=== PATIENT | female | born 2005 | race Two or more races ===

== ENCOUNTER 2024-07-13 06:50 | Observation (INO) ==
--- NOTE | 2024-07-13 07:38 | Emergency Department Note ---
Impression & Plan Intractable cyclical vomiting with nausea ED Provider Note CHIEF COMPLAINT: Nausea, vomiting, chest burning x 2 days HISTORY OF PRESENT ILLNESS: Patient is a 18-year-old female with past medical history significant for cyclic vomiting syndrome who returns to the emergency department for continued nausea, vomiting, dry heaves, chest and esophageal burning. This is her third ED visit in 24 hours for the same complaint. She reports that she was seen at the [facility] facility on Friday. She was seen here twice yesterday. She was discharged around 0200 this morning, and now returns at 0700. Practitioner documented the patient was feeling improved at the time of discharge, but patient reports that she was still having symptoms at discharge, but went home anyways. She continues to note burning in her chest and esophagus and nausea, vomiting and dry heaves. She has not tried any medications as an outpatient for her symptoms, electing to come back to the emergency department. She rates her pain a 10/10. She has a history of the same, was diagnosed with cyclic vomiting syndrome about 5 years ago. She has had an EGD and seen GI in the past. She does report a history of marijuana use, but claims that this is not contributing to her current symptoms. REVIEW OF SYSTEMS: Review of systems as per HPI. All other systems reviewed were negative. 10 systems reviewed. PMH: External medical records are reviewed and summarized as above/below. See Problem List. SOCIAL HISTORY: Patient is a [employer] student from [place]. Lives in an apartment. PHYSICAL EXAM: Vital Signs: Reviewed Nurse's notes. CONSTITUTIONAL: Patient is an uncomfortable, tearful 18-year-old female who is rolling around on the gurney, holding an emesis bag. She is moaning/crying out in pain. EYES: Pupils equal, round, reactive to light and accommodation. EOMs intact without nystagmus. Sclera are anicteric. ENT: Tympanic membranes intact, with normal landmarks. External canals are clear. Oral and nasopharynx are clear. Mucous membranes are moist, no lesions, tongue and gums appear normal. CARDIOVASCULAR: Tachycardic, but regular, no murmur appreciated. Peripheral pulses easily palpable. RESPIRATORY: Breath sounds equal and clear to auscultation. ABDOMEN: Bowel sounds are present. Abdomen is soft, scaphoid, diffusely tender, primarily in the upper abdomen, no guarding or rebound. INTEGUMENTARY: No lesions or rash, normal skin turgor. LYMPH: No lymphadenopathy. EMERGENCY DEPARTMENT COURSE: The patient was seen and assessed as above. External medical records were reviewed, including recent ED notes and labs. She returns to the ED for her third visit in about 24 hours of the same complaint. She has a history of cyclic vomiting syndrome, also is a known marijuana user. IV lock was initiated. Laboratory studies were collected. She was hydrated with normal saline solution. She was treated with fentanyl 50mcg IV, Benadryl 50mg, compazine 10mg IV, and Pepcid 20 mg IV. She was observed on the cardiac rn. Diagnostics, as interpreted by me: Laboratory studies: White count mildly elevated at 14,600, with left shift, likely related to the stress of vomiting and pain. Stable from the prior labs x 2. No significant electrolyte imbalance, sodium 135, potassium 3.7, chloride 103, carbon oxide 17, anion gap of 15. Renal functions are normal. No transaminitis. Lipase is normal. ECG: Sinus tachycardia, 114 bpm. QT/QTc 390/537, mildly prolonged from prior. No acute ischemic changes. Cardiac Monitoring: An order was placed for continuous cardiac monitoring. The monitor shows a NSR at a rate of 78 per my interpretation. Patient was reassessed frequently. Initially, pain and nausea continued, but ultimately, patient did report feeling improved. No further vomiting after being medicated. All laboratory and diagnostic imaging studies are reviewed with her. Given that this is her third visit in 24 hours for the same complaint, discussed observation/admission with the patient who agrees. Normal saline continued at 250 cc/h. Patient discussed with ED case manager and [facility] and [facility]. Differential diagnosis: GERD, gastritis, esophagitis, peptic ulcer disease, pancreatitis, biliary pathology, infectious versus inflammatory colitis/enteritis, foodborne illness, cyclic vomiting syndrome, electrolyte or metabolic abnormality, dehydration, among others. Past Med/Surg History Problem List Intractable cyclical vomiting with nausea (Acute) Cannabinoid hyperemesis syndrome (Acute) Gastritis (Acute) Nausea & vomiting (Acute) Medical History Cyclic vomiting syndrome Cannabinoid hyperemesis syndrome Surgical History History of esophagogastroduodenoscopy (EGD) Social History Smoking Status: Never smoker Second Hand Exposure: No; Do You Dip or Chew Tobacco: No; Tobacco Cessation Education Requested by Patient: No Hx Alcohol Use: Yes Alcohol type: hard liquor Hx Substance Use: Yes Last Used Substance: Days (ago) Preferred Language: Nepali Communication Ability: Effective Vault Maker Required: No Beliefs That Will Affect Care: None Current Living Situation: Other Current Living Situation Comment: college dorm off campus Other Information That Helps Us Care for You: No Feels Safe at Home: Yes Safety Concerns: Feels Safe At This Time Assistive Devices: None Allergies Allergies Allergy/AdvReac Type Severity Reaction Status Date / Time No Known Allergies Allergy Verified 07/13/24 07:35 Home Meds Home Medications Medication Instructions Recorded Confirmed Oral Contraceptive 1 tab PO DAILY 07/13/24 07/13/24 Zofran 1 tab PO DIRECTED PRN n/v 07/13/24 07/13/24 escitalopram oxalate 10 mg tablet 10 mg PO DAILY 07/13/24 07/13/24 (Lexapro) hydroxyzine HCl 25 mg tablet 25 mg PO DIRECTED PRN anxiety 07/13/24 07/13/24 Results & Data (ED) Vital Signs Vital Signs - 24 hr 07/13/24 07:04 07/13/24 08:00 07/13/24 08:00 Temperature 36.7 C 36.8 C Temperature Source Temporal Artery Scan Oral Pulse Rate 110 H 114 H Pulse Rate [Right Finger] 114 H Pulse Rhythm Regular Pulse Rhythm [Right Finger] Regular Pulse Strength [Right Finger] Normal Respiratory Rate 24 26 H 26 H Respiratory Effort / Characteristics Non-Labored Spontaneous Respiratory Depth Normal Respiratory Pattern Regular Blood Pressure [Left Arm] 109/74 Blood Pressure Mean [Left Arm] 85 Blood Pressure Position [Left Arm] Semi-fowlers Pulse Oximetry 98 98 98 Oxygen Delivery Method Room Air Room Air Room Air Sepsis New/Unexplained Change in Mental Status No Sepsis Action Taken by Nursing No Action Required 07/13/24 08:14 07/13/24 10:00 Temperature 36.8 C Temperature Source Oral Pulse Rate 78 Pulse Rate [Right Finger] 74 Pulse Rhythm Pulse Rhythm [Right Finger] Regular Pulse Strength [Right Finger] Normal Respiratory Rate 18 Respiratory Effort / Characteristics Non-Labored Spontaneous Respiratory Depth Normal Respiratory Pattern Regular Blood Pressure [Left Arm] 119/84 Blood Pressure Mean [Left Arm] 95 Blood Pressure Position [Left Arm] Semi-fowlers Pulse Oximetry 98 Oxygen Delivery Method Room Air Sepsis New/Unexplained Change in Mental Status Sepsis Action Taken by Longterm Medications Current Medication List: was personally reviewed by me Laboratory Data Attestation: I reviewed the patient's lab results. 07/13/24 07:49 07/13/24 07:49 Lab Results 07/13/24 Range/Units 07:49 WBC 14.64 H (4.8-10.8) K/ul RBC 4.51 (4.20-5.40) M/uL Hgb 12.9 (12.0-16.0) g/dl Hct 37.9 (37.0-47.0) % MCV 84.0 (80.0-100.0) fL MCH 28.6 (25.0-34.0) pg MCHC 34.0 (32.0-36.0) g/dL RDW Std Deviation 40.5 (36.4-46.3) fL RDW Coeff of Bienven[place] 13.2 (11.5-14.5) % Plt Count 232 (130-400) K/uL MPV 13.2 H (9.4-12.4) fL Immature Gran % (Auto) 0.3 % Neut % (Auto) 73.7 % Lymph % (Auto) 16.9 % [place] % (Auto) 8.9 % Eos % (Auto) 0.1 % Baso % (Auto) 0.1 % Neut # (Auto) 10.76 H (1.40-6.50) K/uL Lymph # (Auto) 2.48 (1.20-3.40) K/uL [place] # (Auto) 1.31 H (0.11-0.59) K/uL Eos # (Auto) 0.02 (0.00-0.50) K/uL Baso # (Auto) 0.02 (0.00-0.20) K/uL Immature Gran # (Auto) 0.05 (0.01-0.20) K/uL Sodium 135 L (136-145) mmol/L Potassium 3.7 (3.5-5.1) mmol/L Chloride 103 (98-107) mmol/L Carbon Dioxide 17 L (21-32) mmol/L Anion Gap 15 H (3-11) BUN 12 (6-23) mg/dl Creatinine 0.78 (0.6-1.2) mg/dl Est Cr Clr Drug Dosing 86.8 ml/min Est GFR ( Amer) 126.8 ml/min Est GFR (Non-Af Amer) 109.4 ml/min BUN/Creatinine Ratio 15.4 (10-20) Glucose 128 H (70-99(Fasting)) mg/dl Calcium 9.4 (8.6-10.3) mg/dl Total Bilirubin 0.7 (0.2-1.0) mg/dl AST 30 (13-39) U/L ALT 28 (7-52) U/L Alkaline Phosphatase 40 (34-104) U/L Troponin I High Sens 6.0 (0-14) pg/ml Total Protein 7.6 (6.0-8.3) gm/dl Albumin 4.4 (3.4-5.0) gm/dl Globulin 3.2 (2.5-4.0) gm/dl Albumin/Globulin Ratio 1.4 (0.9-2) Lipase 17 (11-82) U/L HCG, Qual Negative (Negative) Administered Medications Al Hydrox/Mg Hydrox/Simethicone (Aluminum/Magnesium Susp 30 Ml Udc) 30 ml PO Q6H PRN PRN Reason: GERD/Pain Stop: 08/12/24 18:28 Last Admin: 07/13/24 19:08 Dose: 30 ml Documented By: CHRISTOPHER Dextrose/Lactated Ringer's (D5w And Lactated Ringers) 1,000 mls @ 125 mls/hr IV .Q8H STEVE Stop: 08/12/24 10:44 Last Admin: 07/13/24 19:59 Dose: 125 mls/hr Documented By: Infusion: 07/13/24 19:59 Dose: Infused Documented By: Admin: 07/13/24 13:33 Dose: 125 mls/hr Documented By: JULIO C Famotidine (Pepcid 20mg Iv Push) 20 mg in 5 mls @ 2.5 mls/min IV Q12H STEVE Stop: 08/12/24 11:59 Last Admin: 07/13/24 11:57 Dose: 2.5 mls/min Documented By: JULIO C Acetaminophen (Ofirmev) 1,000 mg in 100 mls @ 400 mls/hr IV Q8H PRN PRN Reason: pain/fever Stop: 07/16/24 12:05 Last Admin: 07/13/24 21:30 Dose: 400 mls/hr Documented By: Infusion: 07/13/24 13:03 Dose: Infused Documented By: JULIO C Admin: 07/13/24 12:13 Dose: 400 mls/hr Documented By: JULIO C Meclizine HCl (Meclizine 12.5 Mg Tab) 12.5 mg PO BID PRN PRN Reason: Nausea And Vomiting Stop: 08/12/24 11:46 Last Admin: 07/13/24 19:08 Dose: 12.5 mg Documented By: CHRISTOPHER Ondansetron HCl (Ondansetron Inj 2 Mg/Ml 2 Ml Vial) 4 mg IV Q4H PRN PRN Reason: Nausea Stop: 08/12/24 13:12 Last Admin: 07/13/24 18:15 Dose: 4 mg Documented By: Admin: 07/13/24 13:34 Dose: 4 mg Documented By: JULIO C Discontinued Medications Al Hydrox/Mg Hydrox/Simethicone (Aluminum/Magnesium Susp 30 Ml Udc) 30 ml PO NOW STA Stop: 07/13/24 13:10 Last Admin: 07/13/24 13:34 Dose: 30 ml Documented By: JULIO C Diphenhydramine HCl (Diphenhydramine 50 Mg/Ml Vial) 50 mg IV NOW STA Stop: 07/13/24 07:37 Last Admin: 07/13/24 07:54 Dose: 50 mg Documented By: ROSIO Diphenhydramine HCl (Diphenhydramine 50 Mg/Ml Vial) 25 mg IV NOW STA Stop: 07/13/24 20:17 Last Admin: 07/13/24 20:39 Dose: 25 mg Documented By: ROZ Fentanyl Citrate (Fentanyl Citrate Pf 100 Mcg/2 Ml Vial) 50 mcg IV NOW STA Stop: 07/13/24 07:37 Last Admin: 07/13/24 07:54 Dose: 50 mcg Documented By: ROSIO Sodium Chloride (Nss) 1,000 mls @ 999 mls/hr IV .Q1H1M STEVE Stop: 07/13/24 08:36 Last Infusion: 07/13/24 09:37 Dose: Infused Documented By: Admin: 07/13/24 07:54 Dose: 999 mls/hr Documented By: ROSIO Famotidine (Pepcid 20mg Iv Push) 20 mg in 5 mls @ 2.5 mls/min IV NOW STA Stop: 07/13/24 07:37 Last Admin: 07/13/24 07:55 Dose: 2.5 mls/min Documented By: ROSIO Prochlorperazine (Compazine) 2 mls @ 1 mls/min IV ONE ONE Stop: 07/13/24 07:37 Last Admin: 07/13/24 07:54 Dose: 1 mls/min Documented By: ROSIO Sodium Chloride (Nss) 1,000 mls @ 250 mls/hr IV .Q4H [facility] Stop: 08/12/24 09:29 Last Infusion: 07/13/24 13:29 Dose: Infused Documented By: JULI OC Admin: 07/13/24 09:28 Dose: 250 mls/hr Documented By: ROSIO Magnesium Sulfate/Dextrose (Magnesium Sulfate / D5w) 1 gm in 100 mls @ 50 mls/hr IV ONE ONE Stop: 07/13/24 12:19 Last Infusion: 07/13/24 13:29 Dose: Infused Documented By: JULIO C Admin: 07/13/24 11:14 Dose: 50 mls/hr Documented By: ROSIO Pantoprazole Sodium 40 mg/ (Syringe) 10 mls @ 5 mls/min IV NOW ONE Stop: 07/13/24 18:46 Last Admin: 07/13/24 19:07 Dose: 5 mls/min Documented By: CHRISTOPHER Prochlorperazine 10 mg/ (Syringe) 10 mls @ 5 mls/min IV ONE ONE Stop: 07/13/24 20:31 Last Admin: 07/13/24 20:40 Dose: 5 mls/min Documented By: ROZ Ioversol (Optiray 320 125ml) 119 ml IV ONCE ONE Stop: 07/13/24 15:14 Last Admin: 07/13/24 15:13 Dose: 119 ml Documented By: HILARIO Discharge Plan Visit Data Chief Complaint: Vomiting Stated Complaint: WAS HERE EARLIER VOMITING ED Provider: Su Abel ED Midlevel Provider: Angeline Palmer Discharge Problem: Intractable cyclical vomiting with nausea Patient Disposition: Admitted As Inpatient Discharge Instructions Interventions: ED Discharge Assessment Last Done: 07/13/24 11:14
[2024-07-13] MEDS: diphenhydrAMINE 50 MG/ML VIAL IV STA ×2 (07:54→20:39)
[2024-07-13] MEDS: SODIUM CHLORIDE 0.9% 1,000 ML IV SCH ×2 (07:54→09:28)
[2024-07-13] MEDS: fentaNYL citrate PF 100 MCG/2 ML VIAL IV STA (07:54)
[2024-07-13] MEDS: PROCHLORPERAZINE 2 ML IV ONE (07:54)
[2024-07-13] MEDS: FAMOTIDINE 20MG IV PUSH 20 MG/5 ML SYR IV STA (07:55)
[2024-07-13 08:08] LABS: Basophils # (auto) 0.02 K/uL (0.00-0.20); Basophils % (auto) 0.1 %; Eosinophils # (auto) 0.02 K/uL (0.00-0.50); Eosinophils % (auto) 0.1 %; Hematocrit (blood only) 37.9 % (37.0-47.0); Hemoglobin 12.9 g/dl (12.0-16.0); Immature Granulocytes # (auto) 0.05 K/uL (0.01-0.20); Immature Granulocytes % (auto) 0.3 %; Lymphocytes # (auto) 2.48 K/uL (1.20-3.40); Lymphocytes % (auto) 16.9 %; Mean Corpuscular Hemoglobin 28.6 pg (25.0-34.0); Mean Platelet Volume 13.2 fL (9.4-12.4); Monocytes # (auto) 1.31 K/uL (0.11-0.59); Monocytes % (auto) 8.9 %; Neutrophils # (auto) 10.76 K/uL (1.40-6.50); Neutrophils % (auto) 73.7 %; Platelet Count 232 K/uL (130-400); RDW Coefficient of Variation 13.2 % (11.5-14.5); RDW Standard Deviation 40.5 fL (36.4-46.3); Red Blood Count 4.51 M/uL (4.20-5.40); White Blood Count 14.64 K/ul (4.8-10.8)
[2024-07-13 08:26] LABS: Albumin Globulin Ratio 1.4 (0.9-2); Albumin Level 4.4 gm/dl (3.4-5.0); BUN Creatinine Ratio 15.4 (10-20); Bilirubin,Total 0.7 mg/dl (0.2-1.0); Calcium 9.4 mg/dl (8.6-10.3); Creatinine Clr Calc Pharmacy 86.8 ml/min; Est GFR (African American) 126.8 ml/min; Est GFR (Non-African American) 109.4 ml/min; Globulin 3.2 gm/dl (2.5-4.0); Potassium 3.7 mmol/L (3.5-5.1); Total Protein 7.6 gm/dl (6.0-8.3)
--- NOTE | 2024-07-13 10:34 | History & Physical Report ---
Date of Service July 13, 2024 Assessment & Plan (1) Intractable cyclical vomiting with nausea: Plan: Nausea/vomiting, cyclic vomiting syndrome With history of cyclic vomiting syndrome, and marijuana use with potential for hyperemesis syndrome Patient has had cyclic vomiting syndrome x 5 years, has had intermittent marijuana use over the last year but denies use in the last 2 weeks, U tox is positive. Her cyclic vomiting preceded marijuana use, but certainly is at risk for ACS as well Received Pepcid, Benadryl, prochlorperazine in the ER. Feels slightly improved, additional antiemetics were limited by QT prolongation at 537. Mag optimized 2.0, tachycardia improved post fluids, QTc recheck pending Increased anion gap, low bicarb, borderline low potassium likely due to vomiting. Clinically volume contracted. IV FM continued with LR Leukocytosis of 14 without left shift, NLR of 5 likely from stress demargination. No abdominal pain at time of assessment. No indication for CT at time of admitting assessment. Lipase and transaminases are normal Given prolonged QT continue meclizine for antiemetic, second line low-dose Haldol IM second line if QT remains prolonged. Could use benzodiazepines however would defer this due to risks as a potentially habit-forming medication Patient reports she has never been tried on a triptan. Does not have any known history of hypersensitivity, hepatic disease, or seizures. Can consider this for abortive treatment in the future will defer this 2/2 QT greater than 500 on admission Can add CoQ10 as outpatient for ?benefit in [facility] suppression. Do not have this on inpt formulary (2) Cyclic vomiting syndrome: Plan DVT prophylaxis: Low risk. SCDs and ambulate Diet: Clears, advance as tolerated Disposition: Medical telemetry given prolonged QT s/p antiemetics CODE STATUS: Full code History of Present Illness Primary Care Provider: [facility] Delisa is a 18yo female with a past medical history of cyclic vomiting syndrome and marijuana use who presents with continued nausea/vomiting, dry heaves and point contraction. Third ER visit in 24 hours for the same complaint. Was seen at [facility] on Friday and twice in the ER yesterday. Was discharged several hours ago this morning and return to the ER for ongoing nausea/vomiting. Due to multiple presentations and ongoing symptoms she is recommended for observation for intractable nausea. 18-year-old female with a past medical history of cyclic vomiting syndrome of around 5 years, and marijuana use for around 1 year. She reports her attacks are typically set off by anxiety more several times a year however since being on Lexapro her anxiety is greatly improved and has had a dramatic reduction in her cyclic vomiting episodes now only a few a year. She thinks that her episode this time may have been triggered by eating rice and bad chicken a fe days ago and then started vomiting after. Anxiety had set off attack before but feels this is currently well-controlled. No tobacco use, no vape use. Marijuana use 1-2x on the weekends since sophomore year of college (~1 year ago) and has not noticed an effect on her nausea/vomiting. She reports she has not used any marijuana in the last 2 weeks, reports she has been counseled many times to avoid this for its potential to worsen nausea/vomiting syndromes or induce SHAHNAZ No diarhhea. Denies abdominal pain at time of assessment Endorses some pain in her throught/sternum after vomiting. None at time of bedside assessment No fever, chills, or sweats No dysuria No vaginal burning, pain, or discharge Reports she still feels nauseous and has trouble keeping food down No hematemesis. No melena. No bright red blood per rectum Medications include Lexapro 10mg OCP 'starts with an E' but is not sure which 1. Will attempt to clarify and have med rec updated. No recent medication changes Zofran PRN Hydroxyzine thinks 25mg used rarely for anxiety attack Medical History: Reviewed Medications: Reviewed Surgical History: Reviewed Family history: Reviewed Allergies: Reviewed. NKDA Social History: As noted. Code Status: Full Code. Does not want her parents called at time of admission, only if necessary in an emergency. Allergies Allergy/AdvReac Type Severity Reaction Status Date / Time No Known Allergies Allergy Verified 07/13/24 07:35 Home Medications Medication Instructions Recorded Confirmed Type Oral Contraceptive 1 tab PO DAILY 07/13/24 07/13/24 History Zofran 1 tab PO DIRECTED PRN n/v 07/13/24 07/13/24 History escitalopram oxalate 10 mg tablet 10 mg PO DAILY 07/13/24 07/13/24 History (Lexapro) hydroxyzine HCl 25 mg tablet 25 mg PO DIRECTED PRN anxiety 10/01/24 10/01/24 History Past Med/Surg History Problem List Intractable cyclical vomiting with nausea (Acute) Cannabinoid hyperemesis syndrome (Acute) Gastritis (Acute) Nausea & vomiting (Acute) Medical History Cyclic vomiting syndrome Cannabinoid hyperemesis syndrome Surgical History History of esophagogastroduodenoscopy (EGD) Social History Smoking Status: Current some day smoker Preferred Language: South Korean Feels Safe at Home: Yes Physical Exam Physical Exam: General: A&Ox3. NAD. Cooperative. HEENT: Atraumatic, normocephalic. Vision/hearing intact. Pupils equal and reactive to light. Mucous membranes tacky. Pulm: CTAB A&P. -wheezes, -rales, -rhonchi. Symmetrical chest rise. No increased work of breathing. No respiratory distress. Cardiac: RRR, -mrg. Radial pulses intact and symmetrical. Abdominal: Nontender, nondistended, soft. BS present. Extremities: Warm and dry. Moves all extremities equally Results & Data Results & Data Vital Signs (Past 12 Hours) Vital Signs Temp Pulse Pulse Resp BP Pulse Ox O2 Del Method 07/13/24 10:00 36.8 C 74 18 119/84 98 Room Air 07/13/24 08:14 78 07/13/24 08:00 114 H 26 H 98 Room Air 07/13/24 08:00 36.8 C 114 H 26 H 109/74 98 Room Air 07/13/24 07:04 36.7 C 110 H 24 98 Room Air PG Care Time/CCT Total # of Minutes Spent Total Time Spent with Patient: Total time spent is greater than 50% in coordination of care (as documented) at patient's floor/unit and/or counseling patient: Coding Level of Care Code 02133 INT INP/OBS CARE 3/75MIN Diagnoses Intractable cyclical vomiting with nausea R11.15 Cyclic vomiting syndrome R11.15
--- NOTE | 2024-07-13 11:05 | Electrocardiogram Report ---
Test Reason : Blood Pressure : */* mmHG Vent. Rate : 114 BPM Atrial Rate : 114 BPM P-R Int : 120 ms QRS Dur : 68 ms QT Int : 390 ms P-R-T Axes : 83 81 70 degrees QTcB Int : 537 ms Sinus tachycardia Possible Left atrial enlargement Prolonged QT Nonspecific ST abnormality Abnormal ECG When compared with ECG of 12-Jul-2024 21:44, (unconfirmed) T wave inversion no longer evident in Inferior leads T wave amplitude has decreased in Lateral leads Confirmed by Eric Luque ([id number]) on 07/13/2024 11:04:48 AM Referred By: REFERRED SELF Confirmed By: Eric Luque
[2024-07-13] MEDS: MAGNESIUM SULFATE / D5W 1 GM/100 ML BAG IV ONE (11:14)
[2024-07-13] MEDS ORDERED: ACETAMINOPHEN 325 MG TAB PO PRN (11:47)
[2024-07-13] MEDS: FAMOTIDINE 20MG IV PUSH 20 MG/5 ML SYR IV SCH (11:57)
[2024-07-13 12:04] LABS: Appearance Urine Clear (Clear); Bilirubin Urine Negative (Negative); Blood Urine Negative (Negative); Color Urine Yellow; Glucose Urine UA Negative (Negative); Ketones Urine 2+ (Negative); Leukocyte Esterase Urine Negative (Negative); Nitrite Urine Negative (Negative); Protein Urine Negative (Negative); Specific Gravity Urine 1.012 (1.000-1.030); Urobilinogen Urine Negative (Negative); pH Urine 6.5 (4.5-7.5)
[2024-07-13] MEDS: ACETAMINOPHEN 1,000 MG/100 ML VIAL IV PRN (12:13)
[2024-07-13] MEDS: D5W AND LACTATED RINGERS 1,000 ML IV SCH (13:33)
[2024-07-13] MEDS: ALUMINUM/MAGNESIUM SUSP 30 ML UDC PO STA (13:34)
[2024-07-13] MEDS: ONDANSETRON INJ 2 MG/ML 2 ML VIAL IV PRN (13:34)
[2024-07-13] MEDS: OPTIRAY 320 125ml IV ONE (15:13)
[2024-07-13 15:17] LABS: Pregnancy Test, Serum Negative (Negative)
--- NOTE | 2024-07-13 15:27 | CT Scan Report ---
CT abd pelvis IV con only CLINICAL HISTORY: abdominal pain TECHNIQUE: Helical axial images of the abdomen and pelvis were obtained and displayed. Automated dose lowering techniques and/or adjustment according to patient size were utilized for this exam. This e xam was performed with intravenous contrast. CT DOSE: 574.38 mGy.cm COMPARISON: None available at the time of this dictation. FINDINGS: Lower chest: No acute abnormality. Liver: Unremarkable. No focal lesions are seen. Gallbladder and biliary tree: No calcified gallstones. Normal caliber wall. No intra- or extrahepatic biliary ductal dilation. Pancreas: Unremarkable, no focal lesions. Spleen: Unremarkable. Adrenals: Unremarkable. Kidneys and ureters: Unremarkable. Bladder: Unremarkable. Reproductive organs: Uterus is retroverted. Bowel: The appendix is normal. Lymph nodes Retroperitoneal: Unremarkable. Pelvic: Unremarkable. Mesenteric: Unremarkable. Peritoneum: Normal. Vessels: Unremarkable. Abdominal wall: Unremarkable. Bones: Unremarkable. IMPRESSION: No acute abnormalities and in particular no evidence of bowel obstruction this patient with nausea. ACT 112: Negative or not required by law. Electronically signed by: Kenny Urena M.D. 07/13/2024 3:25 PM
--- NOTE | 2024-07-13 15:28 | CT Scan Report ---
CT ANGIOGRAPHY OF THE CHEST, PULMONARY EMBOLUS PROTOCOL CLINICAL HISTORY: Chest pain. Evaluate for pulmonary embolus. COMPARISON STUDY: Chest radiograph July 12, 2024. TECHNIQUE: Following IV administration of 119 mL of Optiray, helical axial images of the chest were o btained utilizing the pulmonary embolus protocol. Maximal intensity projections and sagittal and cor onal reformats were viewed on an independent 3D workstation. IV contrast was administered without co mplication. Automated exposure control was utilized for the study. A dose lowering technique was ut ilized adhering to the principles of ALARA. FINDINGS: No pulmonary emboli are identified. There is no thoracic aortic dissection. Size of the he art is normal. There is no pericardial effusion. No enlarged axillary, mediastinal or hilar lymph nod es are present. There are no pulmonary nodules. There is no pneumothorax or pleural effusion. No cons olidation to suggest pneumonia. Please note that the abdomen and pelvis CT will be reported separatel y. IMPRESSION: 1. No pulmonary emboli identified. 2. No acute intrathoracic findings. ACT 112: Negative or not required by law. Electronically signed by: Alex Huerta M.D. 07/13/2024 3:27 PM
[2024-07-13] MEDS: PANTOprazole 40 MG in SYRINGE 0 ML IV ONE (19:07)
[2024-07-13] MEDS: ALUMINUM/MAGNESIUM SUSP 30 ML UDC PO PRN (19:08)
[2024-07-13] MEDS: MECLIZINE 12.5 MG TAB PO PRN (19:08)
[2024-07-13] MEDS: PROCHLORPERAZINE 10 MG in SYRINGE 8 ML IV ONE (20:40)
[2024-07-14 07:15] LABS: Basophils # (auto) 0.06 K/uL (0.00-0.20); Basophils % (auto) 0.7 %; Eosinophils # (auto) 0.01 K/uL (0.00-0.50); Eosinophils % (auto) 0.1 %; Hematocrit (blood only) 34.7 % (37.0-47.0); Hemoglobin 11.6 g/dl (12.0-16.0); Immature Granulocytes # (auto) 0.02 K/uL (0.01-0.20); Immature Granulocytes % (auto) 0.2 %; Lymphocytes # (auto) 3.75 K/uL (1.20-3.40); Lymphocytes % (auto) 42.3 %; Mean Corpuscular Hemoglobin 28.6 pg (25.0-34.0); Mean Corpuscular Hgb Conc 33.4 g/dL (32.0-36.0); Mean Corpuscular Volume 85.5 fL (80.0-100.0); Mean Platelet Volume 13.2 fL (9.4-12.4); Monocytes # (auto) 0.79 K/uL (0.11-0.59); Monocytes % (auto) 8.9 %; Neutrophils # (auto) 4.24 K/uL (1.40-6.50); Neutrophils % (auto) 47.8 %; Platelet Count 190 K/uL (130-400); RDW Coefficient of Variation 13.5 % (11.5-14.5); RDW Standard Deviation 41.4 fL (36.4-46.3); Red Blood Count 4.06 M/uL (4.20-5.40); White Blood Count 8.87 K/ul (4.8-10.8)
[2024-07-14 07:37] LABS: Calcium 8.5 mg/dl (8.6-10.3); Potassium 3.5 mmol/L (3.5-5.1)
[2024-07-14 07:38] VITALS: TEMP 98.4
[2024-07-14 07:42] LABS: BUN Creatinine Ratio 6.7 (10-20); Creatinine Clr Calc Pharmacy 90.3 ml/min; Est GFR (Non-African American) 114.7 ml/min
--- NOTE | 2024-07-14 07:49 | Hospitalist Progress Note ---
Date of Service July 14, 2024 Assessment & Plan (1) Intractable cyclical vomiting with nausea: Plan: Nausea/vomiting, cyclic vomiting syndrome With history of cyclic vomiting syndrome, and marijuana use with potential for hyperemesis syndrome Patient has had cyclic vomiting syndrome x 5 years, has had intermittent marijuana use over the last year but denies use in the last 2 weeks, U tox is positive. Her cyclic vomiting preceded marijuana use, but certainly is at risk for ACS as well Received Pepcid, Benadryl, prochlorperazine in the ER. Feels slightly improved, additional antiemetics were limited by QT prolongation at 537. Mag optimized 2.0, tachycardia improved post fluids, QTc recheck pending Increased anion gap, low bicarb, borderline low potassium likely due to vomiting. Clinically volume contracted. IV FM continued with LR Leukocytosis of 14 without left shift, NLR of 5 likely from stress demargination. No abdominal pain at time of assessment. No indication for CT at time of admitting assessment. Lipase and transaminases are normal Given prolonged QT continue meclizine for antiemetic, second line low-dose Haldol IM second line if QT remains prolonged. Could use benzodiazepines however would defer this due to risks as a potentially habit-forming medication Patient reports she has never been tried on a triptan. Does not have any known history of hypersensitivity, hepatic disease, or seizures. Can consider this for abortive treatment in the future will defer this 2/2 QT greater than 500 on admission Can add CoQ10 as outpatient for ?benefit in [facility] suppression. Do not have this on inpt formulary CTA chest negative for PE, abdomen/pelvis negative for acute process given reports of 10/10 abdominal pain last evening 07/14 - s/p Protonix, mag IV on admission. Continues Protonix IVP, Pepcid IV - Was given Benadryl 25mg IV and prochlorperazine 10mg IV overnight - Repeat EKG this morning to monitor QTC UA w/ 2+ ketones, anion gap normalized on repeat chemistries. Prior UA from AM 10 noting 3-5 RBC, 11-20 WBC, 6-10 epi, 1+ bacteria -- monitor urine cx WBC normalized on repeat, ?stress from n/v IVF w/ LR @ 125cc/hr. BUN/Cr stable and will decrease to 75cc/hr for now until able to assess ability to take PO. Clear liquid--> Full liquid diet this morning--> advance as tolerated. Can dc IVF if keeping up with PO Check biofire given n/v and reports possible rice/chicken contaminant. ? food poisoning. ?anyone else get sick ?relation to period/PMS (2) Cyclic vomiting syndrome: Plan DVT prophylaxis: Low risk. SCDs and ambulate Diet: Clears, advance as tolerated Disposition: Medical telemetry given prolonged QT s/p antiemetics CODE STATUS: Full code Admission and Anticipated Discharge Date Admission Date: July 13, 2024 Subjective Sleeping soundly this morning, given IV benadryl and compazine overnight for ongoing nausea/vomiting. Wanting chicken soup this morning, can advance diet. Per nursing wanting to go home, labs improved and can monitor diet w/ advancement and if no issues can plan for discharge. Results & Data Results & Data Vital Signs (Past 12 Hours) Vital Signs Temp Pulse Pulse Resp BP Pulse Ox O2 Del Method 07/14/24 07:37 36.9 C 85 16 116/73 99 Room Air 07/14/24 07:19 75 07/14/24 03:57 36.8 C 78 20 102/66 98 Room Air 07/14/24 00:03 36.6 C 68 20 100/65 99 Room Air 07/13/24 20:04 36.3 C L 65 20 144/88 H 100 Room Air Laboratory Results 07/14/24 06:06 07/14/24 06:06 Mag 2.1 A1c Diagnostic Findings Abdomen/Pelvis CT 07/13/24 14:28 CT abd pelvis IV con only CLINICAL HISTORY: abdominal pain TECHNIQUE: Helical axial images of the abdomen and pelvis were obtained and displayed. Automated dose lowering techniques and/or adjustment according to patient size were utilized for this exam. This exam was performed with intravenous contrast. CT DOSE: 574.38 mGy.cm COMPARISON: None available at the time of this dictation. FINDINGS: Lower chest: No acute abnormality. Liver: Unremarkable. No focal lesions are seen. Gallbladder and biliary tree: No calcified gallstones. Normal caliber wall. No intra- or extrahepatic biliary ductal dilation. Pancreas: Unremarkable, no focal lesions. Spleen: Unremarkable. Adrenals: Unremarkable. Kidneys and ureters: Unremarkable. Bladder: Unremarkable. Reproductive organs: Uterus is retroverted. Bowel: The appendix is normal. Lymph nodes Retroperitoneal: Unremarkable. Pelvic: Unremarkable. Mesenteric: Unremarkable. Peritoneum: Normal. Vessels: Unremarkable. Abdominal wall: Unremarkable. Bones: Unremarkable. IMPRESSION: No acute abnormalities and in particular no evidence of bowel obstruction this patient with nausea. ACT 112: Negative or not required by law. Electronically signed by: Kenny Urena M.D. 07/13/2024 3:25 PM Chest CTA 07/13/24 14:28 CT ANGIOGRAPHY OF THE CHEST, PULMONARY EMBOLUS PROTOCOL CLINICAL HISTORY: Chest pain. Evaluate for pulmonary embolus. COMPARISON STUDY: Chest radiograph July 12, 2024. TECHNIQUE: Following IV administration of 119 mL of Optiray, helical axial images of the chest were obtained utilizing the pulmonary embolus protocol. Maximal intensity projections and sagittal and coronal reformats were viewed on an independent 3D workstation. IV contrast was administered without complication. Automated exposure control was utilized for the study. A dose lowering technique was utilized adhering to the principles of ALARA. FINDINGS: No pulmonary emboli are identified. There is no thoracic aortic dissection. Size of the heart is normal. There is no pericardial effusion. No enlarged axillary, mediastinal or hilar lymph nodes are present. There are no pulmonary nodules. There is no pneumothorax or pleural effusion. No consolidation to suggest pneumonia. Please note that the abdomen and pelvis CT will be reported separately. IMPRESSION: 1. No pulmonary emboli identified. 2. No acute intrathoracic findings. ACT 112: Negative or not required by law. Electronically signed by: Alex Huerta M.D. 07/13/2024 3:27 PM PG Care Time/CCT Total # of Minutes Spent Total Time Spent with Patient: Total time spent is greater than 50% in coordination of care (as documented) at patient's floor/unit and/or counseling patient: Coding Diagnoses Intractable cyclical vomiting with nausea R11.15 Cyclic vomiting syndrome R11.15
[2024-07-14 09:05] LABS: Estimated Average Glucose 111 mg/dl; Hemoglobin A1C 5.5 % (4.5-5.6)
[2024-07-14 11:14] VITALS: BP 127/85; PULSE 60; RESP 14; O2SAT 100
[2024-07-14 11:14] LABS: Adenovirus PCR Not Detected (NotDetected); Bordetella parapertussis PCR Not Detected (NotDetected); Bordetella pertussis PCR Not Detected (NotDetected); Chlamydia pneumoniae PCR Not Detected (NotDetected); Coronavirus 229E PCR Not Detected (NotDetected); Coronavirus CoV-2 (COVID19)PCR Not Detected (NotDetected); Coronavirus HKU1 PCR Not Detected (NotDetected); Coronavirus NL63 PCR Not Detected (NotDetected); Coronavirus OC43PCR Not Detected (NotDetected); Human Metapneumovirus PCR Not Detected (NotDetected); Influenza A PCR Not Detected (NotDetected); Influenza B PCR Not Detected (NotDetected); Mycoplasma pneumoniae PCR Not Detected (NotDetected); Parainfluenza Virus 1 PCR Not Detected (NotDetected); Parainfluenza Virus 2 PCR Not Detected (NotDetected); Parainfluenza Virus 3 PCR Not Detected (NotDetected); Parainfluenza Virus 4 PCR Not Detected (NotDetected); Respiratory Syncytial VirusPCR Not Detected (NotDetected); Rhinovirus/Enterovirus PCR Not Detected (NotDetected)
--- NOTE | 2024-07-14 12:01 | Discharge Summary ---
Discharge Summary Date of Service July 14, 2024 Principal Dx & Hospital Course #1 = Principal Diagnosis (1) Intractable cyclical vomiting with nausea: Patient reported with PMHx significant for cyclic vomiting syndrome x 5 yrs/marijuana use with potential for hyperemesis syndrome and intermittent marijuana use over the last year but denies use in the last 2 weeks. UDS positive for marijuana on admission. LFT/lipase wnl but did have low K/elevated anion gap/low bicarb consistent with dehydration/volume contraction/starvation ketosis from such? On admission evening did have significant discomfort concerning for admission team for possible PE/pneumo given signifciant pain however CTA chest NEGATIVE for PE and abd/pelvis negative for acute finding Was given pepcid, benadryl, proclorperazine in ER with slight improvement and given meclizine given QTC borderline 537 (normalized on repeat EKG 07/14 and telemetry stable/trop negative) and IVF hydration provided with D5LR and IV magnesium to keep electrolytes repleat with normalization in HR Continued on IVF with D5LR, pepcid/protonix on admission. Notable was given benadryl 25mg IV/prochlorperazine overnight and able to sleep through this morning but with concerns for prolonged QTC on admission did repeat EKG to ensure normalized and was normalized and telemetry was stable without reports for CP/SOB and trop negative x 2. Biofire checked given n/v and going around/student and was NEGATIVE Repeat labs with resolution in anion gap/low bicarb and leukocytosis resolved and suspect leukocytosis reactive from n/v prior to admission and remained afebrile while inpatient. Further discussion with patient reporting had rice/chicken from [place] restaurant. Possible food poisoning considered but no one else sick HOWEVER Delisa reports she does have issues with certain hutton's in the past/spices and discussed possible reflux related and sent on rx for pepcid to take before eating any again but would avoid for next couple of days as well as lactose (she usually dose avoid this when having GI upset as well) Tolerating diet, no further n/v with advancement and has rx for zofran at home. Encouraged cautious use/frequency and if using more than 1-2x/day or ongoing use should discuss with primary care outpatient. Did have bacteria from UA from ER 07/13 visit and cx pending but repeat UA negative for bacteria on admission. (2) Cyclic vomiting syndrome: as above, smoking cessation encouraged pepcid for reflux/spicy foods as likely trigger given reported issues with the SAME int he past and no use in past 2 weeks (despite +UDS, ?heavy user prior vs more recent use) Again, avoid marijuana use, spicy foods/triggers. diet as tolerated Notes For Next Care Provider Consider ongoing H2 therapy vs PPI for suspected reflux given reports following [place] food/chicken/rice and issues with hutton in the past. LFTs/lipase wnl and CTAP negative for GB/acute process Cautious use of zofran given QTC but was normalized on repeat. Consideration for referral to GI if ongoing issues despite diet change/pepcid but again could consider PPI but starting with H2 alexis (but was given both while inpatient) Medication Changes From Visit Pepcid 20mg PO daily Admission HPI Per Admitting Provider Delisa is a 18yo female with a past medical history of cyclic vomiting syndrome and marijuana use who presents with continued nausea/vomiting, dry heaves and point contraction. Third ER visit in 24 hours for the same complaint. Was seen at [facility] on Friday and twice in the ER yesterday. Was discharged several hours ago this morning and return to the ER for ongoing nausea/vomiting. Due to multiple presentations and ongoing symptoms she is recommended for observation for intractable nausea. 18-year-old female with a past medical history of cyclic vomiting syndrome of around 5 years, and marijuana use for around 1 year. She reports her attacks are typically set off by anxiety more several times a year however since being on Lexapro her anxiety is greatly improved and has had a dramatic reduction in her cyclic vomiting episodes now only a few a year. She thinks that her episode this time may have been triggered by eating rice and bad chicken a fe days ago and then started vomiting after. Anxiety had set off attack before but feels this is currently well-controlled. No tobacco use, no vape use. Marijuana use 1-2x on the weekends since sophomore year of college (~1 year ago) and has not noticed an effect on her nausea/vomiting. She reports she has not used any marijuana in the last 2 weeks, reports she has been counseled many times to avoid this for its potential to worsen nausea/vomiting syndromes or induce SHAHNAZ No diarhhea. Denies abdominal pain at time of assessment Endorses some pain in her throught/sternum after vomiting. None at time of bedside assessment No fever, chills, or sweats No dysuria No vaginal burning, pain, or discharge Reports she still feels nauseous and has trouble keeping food down No hematemesis. No melena. No bright red blood per rectum Medications include Lexapro 10mg OCP 'starts with an E' but is not sure which 1. Will attempt to clarify and have med rec updated. No recent medication changes Zofran PRN Hydroxyzine thinks 25mg used rarely for anxiety attack Medical History: Reviewed Medications: Reviewed Surgical History: Reviewed Family history: Reviewed Allergies: Reviewed. NKDA Social History: As noted. Code Status: Full Code. Does not want her parents called at time of admission, only if necessary in an emergency. Admission Exam Per Admitting Provider General: A&Ox3. NAD. Cooperative. HEENT: Atraumatic, normocephalic. Vision/hearing intact. Pupils equal and reactive to light. Mucous membranes tacky. Pulm: CTAB A&P. -wheezes, -rales, -rhonchi. Symmetrical chest rise. No increased work of breathing. No respiratory distress. Cardiac: RRR, -mrg. Radial pulses intact and symmetrical. Abdominal: Nontender, nondistended, soft. BS present. Extremities: Warm and dry. Moves all extremities equally Discharge Exam General: 18 yo female sitting up in bed, reporting wanting to advance diet/ready for home, no further nausea/vomiting reported Head atraumatic, normocephalic, mmm, trachea midline Resp even/unlabored, 100% on RA, no tachypnea CV: NSR on telemetry, rates 60-80s, no significant m/r/g, no pitting edema GI: +BS, soft/nontender, no rebound/guarding no hernández MSK/Neuro: non focal, answering questions appropriately, no slurred speech/fac ial droop Psych: AOx3, cooperative Discharge Plan Discharge Items Patient Disposition: Home - Self-Care Reason For Visit: INTRACTABLE VOMITING, QT PROLONGATION Discharge Diagnosis: Intractable nausea/vomiting, possible reflux/food poisoning Goals: You have been hospitalized for an acute medical problem. During your stay at [facility], we have made an effort to correct the problem that brought you to the hospital while keeping you as comfortable as possible. Medications were used to bring your condition under control and your discharge instructions will include directions for any medications you should take after leaving the hospital. Please make sure you see your Primary Care Provider as part of your follow up plan. Activity: As commented below Non-emergency contact: Primary Care Provider Call non-emergency contact if: you have any medication questions, your symptoms worsen, your pain is concerning for you and you have a fever Follow-up/Referrals: [facility] [Primary Care Provider] - Diet: Regular and Lactose Intolerant Addtl Attending Provider Instructions: You have been hospitalized for intractable nausea and vomiting that was brought about after eating chicken/rice/hutton. Possible for food poisoning but would suspect others also to get ill, HOWEVER you could have some underlying reflux which was worsened by spicy foods and we are sending you home on prescription for pepcid which should be taken before eating anything like that again but would avoid spicy/fried foods for another couple of days to ensure continued improvement. Biofire testing was negative for covid/other viral process. Imaging of the chest negative for blood clot and abdomen pelvis negative for anything sinister. Prior urine culture from ER visit 07/13 still pending but white count normal and no fever and if develops urinary symptoms should follow up for repeat testing however UA on admission did NOT have any bacteria and this is considered less likely. Please follow up with primary care in the next 7-10 days after discharge to monitor your status. please continue to stay hydrated at discharge and prevent dehydration. Encourage AVOIDING marijuana as this can cause cyclic vomiting as well. Please return to the ER with any worsening abdominal pain, inability to keep up with oral hydration or for any other symptoms concerning for you. Take care! Pending Studies at Discharge: No Stand-Alone Forms: My [facility] Blink (air taxi), Smoking Cessation Medications and DC Order Prescriptions: New famotidine [Pepcid] 20 mg tablet 20 mg PO DAILY Qty: 30 0RF Continued hydroxyzine HCl 25 mg Tablet 25 mg PO DIRECTED PRN (Reason: anxiety ) escitalopram oxalate [Lexapro] 10 mg Tablet 10 mg PO DAILY Oral Contraceptive 1 tab PO DAILY Rx Instructions: Unknown dose. Fill history unavailable. "starts with E" Zofran 1 tab PO DIRECTED PRN (Reason: n/v) Rx Instructions: unknown strength. Fill history unavailable Discharge Orders: Discharge Order (Routine); Ordered 07/14/24 Ordered By: Addis Cox/Other Patient Handouts: ED Diet Vomiting Diarrhea Admission Data Admit Date/Time: 07/13/24 10:47 Attending Provider: Bryson Morales Admit Provider: Oleksandr Azar Primary Care Provider: [facility] Other Providers: Oleksandr Azar Other Interventions: Discharge Summary Assessment (RN) Last Done: 07/14/24 12:51 Hospital Stay Data Consultations 07/13/24 10:29 ED Decision to Admit Stat Diagnostic Imagining Performed Abdomen/Pelvis CT 07/13/24 14:28 CT abd pelvis IV con only CLINICAL HISTORY: abdominal pain TECHNIQUE: Helical axial images of the abdomen and pelvis were obtained and displayed. Automated dose lowering techniques and/or adjustment according to patient size were utilized for this exam. This exam was performed with intravenous contrast. CT DOSE: 574.38 mGy.cm COMPARISON: None available at the time of this dictation. FINDINGS: Lower chest: No acute abnormality. Liver: Unremarkable. No focal lesions are seen. Gallbladder and biliary tree: No calcified gallstones. Normal caliber wall. No intra- or extrahepatic biliary ductal dilation. Pancreas: Unremarkable, no focal lesions. Spleen: Unremarkable. Adrenals: Unremarkable. Kidneys and ureters: Unremarkable. Bladder: Unremarkable. Reproductive organs: Uterus is retroverted. Bowel: The appendix is normal. Lymph nodes Retroperitoneal: Unremarkable. Pelvic: Unremarkable. Mesenteric: Unremarkable. Peritoneum: Normal. Vessels: Unremarkable. Abdominal wall: Unremarkable. Bones: Unremarkable. IMPRESSION: No acute abnormalities and in particular no evidence of bowel obstruction this patient with nausea. ACT 112: Negative or not required by law. Electronically signed by: Kenny Urena M.D. 07/13/2024 3:25 PM Chest CTA 07/13/24 14:28 CT ANGIOGRAPHY OF THE CHEST, PULMONARY EMBOLUS PROTOCOL CLINICAL HISTORY: Chest pain. Evaluate for pulmonary embolus. COMPARISON STUDY: Chest radiograph July 12, 2024. TECHNIQUE: Following IV administration of 119 mL of Optiray, helical axial images of the chest were obtained utilizing the pulmonary embolus protocol. Maximal intensity projections and sagittal and coronal reformats were viewed on an independent 3D workstation. IV contrast was administered without complication. Automated exposure control was utilized for the study. A dose lowering technique was utilized adhering to the principles of ALARA. FINDINGS: No pulmonary emboli are identified. There is no thoracic aortic dissection. Size of the heart is normal. There is no pericardial effusion. No enlarged axillary, mediastinal or hilar lymph nodes are present. There are no pu lmonary nodules. There is no pneumothorax or pleural effusion. No consolidation to suggest pneumonia. Please note that the abdomen and pelvis CT will be reported separately. IMPRESSION: 1. No pulmonary emboli identified. 2. No acute intrathoracic findings. ACT 112: Negative or not required by law. Electronically signed by: Alex Huerta M.D. 07/13/2024 3:27 PM Discharge Instructions Given to Patient (Per Discharging Provider) You have been hospitalized for intractable nausea and vomiting that was brought about after eating chicken/rice/hutton. Possible for food poisoning but would suspect others also to get ill, HOWEVER you could have some underlying reflux which was worsened by spicy foods and we are sending you home on prescription for pepcid which should be taken before eating anything like that again but would avoid spicy/fried foods for another couple of days to ensure continued improvement. Biofire testing was negative for covid/other viral process. Imaging of the chest negative for blood clot and abdomen pelvis negative for anything sinister. Prior urine culture from ER visit 07/13 still pending but white count normal and no fever and if develops urinary symptoms should follow up for repeat testing however UA on admission did NOT have any bacteria and this is considered less likely. Please follow up with primary care in the next 7-10 days after discharge to monitor your status. please continue to stay hydrated at discharge and prevent dehydration. Encourage AVOIDING marijuana as this can cause cyclic vomiting as well. Please return to the ER with any worsening abdominal pain, inability to keep up with oral hydration or for any other symptoms concerning for you. Take care! Supervising Physician Co-Signing Physician Notes The patient was not seen by me. The chart was reviewed. Case discussed with MARZENA Goodson. Agree with assessment and plan Total Time Total Time Spent Total Time Spent (In Minutes): 40 Coding Level of Care Code 59001 INP/OBS DISCH >30 MIN Diagnoses Intractable cyclical vomiting with nausea R11.15 Cyclic vomiting syndrome R11.15
[2024-07-14] MEDS: PANTOprazole 40 MG in SYRINGE 0 ML IV SCH (12:37)
--- NOTE | 2024-07-14 15:22 | Electrocardiogram Report ---
Test Reason : Blood Pressure : */* mmHG Vent. Rate : 66 BPM Atrial Rate : 66 BPM P-R Int : 126 ms QRS Dur : 104 ms QT Int : 416 ms P-R-T Axes : 67 76 63 degrees QTcB Int : 436 ms Sinus rhythm with occasional Premature ventricular complexes Otherwise normal ECG When compared with ECG of 13-Jul-2024 12:45, (unconfirmed) No significant change was found Confirmed by Eric Luque ([id number]) on 07/14/2024 3:22:02 PM Referred By: REFERRED SELF Confirmed By: Eric Luque
== END 2024-07-14 13:15 | disposition home or self-care (01) ==
LOC: ED 06:50 → EDINP 06:50 → SUATTDRO 10:47 → 2N 11:14

== ENCOUNTER 2024-08-28 03:17 | Observation (INO) ==
--- NOTE | 2024-08-28 03:48 | Emergency Department Note ---
Impression & Plan Intractable cyclical vomiting syndrome, Gastritis ED Provider Note Name: PAMELA LOWRY Age: 18 Sex: Female Arrives Via: Walk-In Informant: There ED Provider: Xander Main MD Chief Complaint: Vomiting Impression: As per impressions above Medical Decision Makin-year-old female with extensive history of cyclic vomiting and multiple previous hospitalizations over the last 5 years. Arrives for second time within the last 12 hours for intractable nausea vomiting and chest pain. EKG is reassuring. Laboratory workup is unremarkable. She was given Benadryl, Reglan, Ativan and fluids with vast improvement though still not tolerating p.o. Discussed with hospitalist who will further evaluate and manage. Triage/Nursing Notes reviewed by Me Differential:Gastroenteritis, food borne illness, infections, appendicitis, diverticulitis, inflammatory bowel disease, obstruction, GI bleed, biliary pathology, volvulus, as well as other pathologies. Vital Signs: reviewed and remarkable for tachycardia Interventions: Benadryl, Reglan, Ativan and fluids & Protonix Labs:ED labs Reviewed by me and remarkable for no significant abnormalities EKG:As per my interpretation. Indication chest pain. Normal sinus rhythm at 73 bpm QTc of 462. There is no ectopy nor ischemia. No significant change from an EKG done 24 hours earlier. Cardiac/Tele Monitoring: Cardiac Monitoring: An Order was placed for continuous cardiac monitoring. The monitor shows a rate of 70 with a normal sinus rhythm. Consults:Discussed with Dr Quoc Sheets for further management/evaluation Plan: Disposition:Hospitalization. Condition: Good History of Present Illness: 18-year-old female arrives for evaluation of vomiting. Patient with history of cyclic vomiting syndrome for the last 5 years. She notes previous physicians have noted marijuana as the cause however symptoms started to worsen over. Patient states that she was here all day yesterday for continued vomiting issues. After going home vomiting restarted and she returns back to the ER. Patient states she is having severe diffuse abdominal cramping, vomiting and now developing substernal chest pain. This is identical to how her symptoms usually are. She states she usually requires IV Ativan, IV antinausea medicine, IV Protonix and hospitalization to get her symptoms under control. She is from the [place] area and states she has been admitted many times previously. No medication prior to arrival. She was given Ativan and droperidol earlier in the day for her nausea and vomiting. Past Medical History:cannibis hyperemesis syndrome Home Medications:See Below Allergies:nkda Vitals:Blood Pressure: 142/108, Pulse 107, RR 18, T 36.2C, O2 96% on RA Physical Exam: GENERAL: Patient is uncomfortable/dehydrated appearing and in moderate distress. Actively dry heaving. Writhing around on the bed. RESPIRATORY: No dyspnea. Clear to auscultation and equal bilaterally. CARDIOVASCULAR: Tacky.No murmur appreciated. GASTROINTESTINAL: diffuse vague abdominal tenderness palpation EXTREMITIES: Normal motion all extremities, no cyanosis, no edema. NEUROLOGIC: Alert and oriented. No focal neurologic deficits appreciated SKIN: No rash, no jaundice, no diaphoresis. PSYCH: Appropriate GCS: 15 ED Course: Times/Reassessments: Patient feeling better unable to tolerate p.o. Xander Main MD Past Med/Surg History Problem List (Updated 08/29/24 @ 00:01 by Xander Main MD) Intractable cyclical vomiting syndrome (Acute) Anxiety with depression Chest pain UTI (urinary tract infection) Gastritis (Acute) Cannabinoid hyperemesis syndrome (Acute) Medical History Cyclic vomiting syndrome Cannabinoid hyperemesis syndrome Surgical History History of esophagogastroduodenoscopy (EGD) Social History Smoking Status: Never smoker Second Hand Exposure: No; Do You Dip or Chew Tobacco: No; Hx Alcohol Use: Yes Alcohol type: beer Hx Substance Use: No Preferred Language: Indonesian Communication Ability: Effective Director Corporate Security Required: No Beliefs That Will Affect Care: None Current Living Situation: Other Current Living Situation Comment: Apartment w/students Feels Safe at Home: Yes Assistive Devices: None Allergies Allergies Allergy/AdvReac Type Severity Reaction Status Date / Time No Known Allergies Allergy Verified 08/28/24 17:25 Home Meds Home Medications Medication Instructions Recorded Confirmed hydroxyzine HCl 25 mg tablet 25 mg PO UD PRN anxiety 07/13/24 08/28/24 norethindrone-eth. estradiol-iron 1 tab PO DAILY 08/28/24 08/28/24 1-20 (5)/1-30(7)/1mg-35mcg(9) tablet (Tilia Fe) Previous Rx's Medication Instructions Recorded famotidine 20 mg tablet (Pepcid) 20 mg PO DAILY #30 tabs 07/14/24 cephalexin 500 mg capsule 500 mg PO BID #8 caps 08/28/24 escitalopram oxalate 20 mg tablet 20 mg PO QAM #30 tabs 08/28/24 famotidine 20 mg tablet 20 mg PO BID #60 tabs 08/28/24 Results & Data (ED) Vital Signs Vital Signs - 24 hr 08/28/24 03:21 08/28/24 04:11 08/28/24 04:12 Temperature 36.2 C L Temperature Source Temporal Artery Scan Pulse Rate 107 H 88 104 H Pulse Rate from SpO2 Sensor 87 Pulse Rhythm Regular Pulse Strength Normal Respiratory Rate 18 22 Respiratory Effort / Characteristics Non-Labored Spontaneous Respiratory Depth Normal Respiratory Pattern Regular Blood Pressure 142/108 H 140/102 H Blood Pressure Mean 119 116 Pulse Oximetry 96 99 Oxygen Delivery Method Room Air Sepsis Recent Fever Within 48 Hours No Sepsis New/Unexplained Change in Mental Status No Sepsis Action Taken by Nursing No Action Required 08/28/24 04:30 08/28/24 05:30 Temperature Temperature Source Pulse Rate 85 79 Pulse Rate from SpO2 Sensor 88 80 Pulse Rhythm Pulse Strength Respiratory Rate 22 21 Respiratory Effort / Characteristics Respiratory Depth Respiratory Pattern Blood Pressure 148/104 H 141/101 H Blood Pressure Mean 123 106 Pulse Oximetry 100 99 Oxygen Delivery Method Sepsis Recent Fever Within 48 Hours Sepsis New/Unexplained Change in Mental Status Sepsis Action Taken by Nursing Laboratory Data 08/28/24 04:05 08/28/24 10:47 Lab Results 08/28/24 Range/Units 04:05 WBC 13.47 H (4.8-10.8) K/ul RBC 4.44 (4.20-5.40) M/uL Hgb 12.9 (12.0-16.0) g/dl Hct 38.8 (37.0-47.0) % MCV 87.4 (80.0-100.0) fL MCH 29.1 (25.0-34.0) pg MCHC 33.2 (32.0-36.0) g/dL RDW Std Deviation 43.6 (36.4-46.3) fL RDW Coeff of [place]ienven[place] 13.8 (11.5-14.5) % Plt Count 196 (130-400) K/uL MPV 13.1 H (9.4-12.4) fL Immature Gran % (Auto) 0.3 % Neut % (Auto) 88.0 % Lymph % (Auto) 8.9 % [place] % (Auto) 2.7 % Eos % (Auto) 0.0 % Baso % (Auto) 0.1 % Neut # (Auto) 11.85 H (1.40-6.50) K/uL Lymph # (Auto) 1.20 (1.20-3.40) K/uL [place] # (Auto) 0.36 (0.11-0.59) K/uL Eos # (Auto) 0.00 (0.00-0.50) K/uL Baso # (Auto) 0.02 (0.00-0.20) K/uL Immature Gran # (Auto) 0.04 (0.01-0.20) K/uL Sodium 136 (136-145) mmol/L Potassium TNP Chloride 102 (98-107) mmol/L Carbon Dioxide 20 L (21-32) mmol/L Anion Gap 14 H (3-11) BUN 12 (6-23) mg/dl Creatinine 0.77 (0.6-1.2) mg/dl Est Cr Clr Drug Dosing 87.9 ml/min eGFR 113.18 BUN/Creatinine Ratio 15.6 (10-20) Glucose 167 H (70-99(Fasting)) mg/dl Calcium 9.8 (8.6-10.3) mg/dl Total Bilirubin 0.4 (0.2-1.0) mg/dl Direct Bilirubin TNP AST TNP ALT 62 H (7-52) U/L Alkaline Phosphatase 44 (34-104) U/L Troponin I High Sens 5.5 (0-14) pg/ml Total Protein 8.1 (6.0-8.3) gm/dl Albumin 4.8 (3.4-5.0) gm/dl Lipase 20 (11-82) U/L Urine Color Yellow Urine Appearance Cloudy A (Clear) Urine pH 7.0 (4.5-7.5) Ur Specific [place] 1.025 (1.000-1.030) Urine Protein 1+ H (Negative) Urine Glucose (UA) Trace H (Negative) Urine Ketones Trace H (Negative) Urine Blood Negative (Negative) Urine Nitrite Negative (Negative) Urine Bilirubin Negative (Negative) Urine Urobilinogen Negative (Negative) Ur Leukocyte Esterase Negative (Negative) Urine WBC (Auto) 11-20 H (0-5) /hpf Urine RBC (Auto) 0-2 (0-2) /hpf U Hyaline Cast (Auto) 3-5 H (0-2) /lpf U Epithel Cells (Auto) 6-10 H (0-2) /hpf Urine Bacteria (Auto) 2+ H (None Seen) Urine Test Negative (Negative) Administered Medications Discontinued Medications Diphenhydramine HCl (Diphenhydramine 50 Mg/Ml Vial) 50 mg IV NOW STA Stop: 08/28/24 03:46 Last Admin: 08/28/24 04:04 Dose: 50 mg Documented By: KWAKU Escitalopram Oxalate (Escitalopram Oxalate 20 Mg Tab) 20 mg PO QAM STEVE Stop: 09/27/24 10:44 Last Admin: 08/28/24 10:59 Dose: 20 mg Documented By: MOUSTAPHA Sodium Chloride (Nss) 1,000 mls @ 999 mls/hr IV .Q1H1M ONE Stop: 08/28/24 04:43 Last Infusion: 08/28/24 06:03 Dose: Infused Documented By: Admin: 08/28/24 04:04 Dose: 999 mls/hr Documented By: KWAKU Pantoprazole Sodium 80 mg/ (Dextrose) 120 mls @ 480 mls/hr IV ONE STA Stop: 08/28/24 03:57 Last Infusion: 08/28/24 06:03 Dose: Infused Documented By: Admin: 08/28/24 05:21 Dose: 480 mls/hr Documented By: KWAKU Lactated Ringer's (Lr) 1,000 mls @ 125 mls/hr IV .Q8H STEVE Stop: 08/29/24 08:32 Last Admin: 08/28/24 10:43 Dose: 125 mls/hr Documented By: MOUSTAPHA Pantoprazole Sodium (Protonix) 40 mg in 10 mls @ 5 mls/min IV BID STEVE Stop: 09/27/24 08:59 Last Admin: 08/28/24 09:57 Dose: 5 mls/min Documented By: MOUSTAPHA Ceftriaxone Sodium (Rocephin) 1,000 mg in 50 mls @ 100 mls/hr IV Q24H [facility]; Protocol Stop: 09/02/24 08:59 Last Infusion: 08/28/24 10:55 Dose: Infused Documented By: Admin: 08/28/24 10:08 Dose: 100 mls/hr Documented By: MOUSTAPHA Lorazepam (Lorazepam 1 Mg/1 Ml Syr Ed Inj Use) 1 mg IV ONE STA Stop: 08/28/24 03:45 Last Admin: 08/28/24 04:04 Dose: 1 mg Documented By: KWAKU Metoclopramide HCl (Metoclopramide Hcl Inj 5 Mg/Ml 2 Ml Vial) 5 mg IV ONE ONE Stop: 08/28/24 03:45 Last Admin: 08/28/24 04:04 Dose: 5 mg Documented By: KWAKU Discharge Plan Visit Data Chief Complaint: Chest Pain Stated Complaint: VOMITING, CHEST PAIN ED Provider: Xander Main Discharge Problem: Intractable cyclical vomiting syndrome, Gastritis Patient Disposition: Admitted As Inpatient Discharge Instructions Interventions: ED Discharge Assessment Last Done: 08/28/24 08:13
[2024-08-28] MEDS: LORazepam 1 MG/1 ML SYR ED Inj Use IV STA (04:04)
[2024-08-28] MEDS: SODIUM CHLORIDE 0.9% 1,000 ML IV ONE (04:04)
[2024-08-28] MEDS: diphenhydrAMINE 50 MG/ML VIAL IV STA (04:04)
[2024-08-28] MEDS: METOCLOPRAMIDE HCL INJ 5 MG/ML 2 ML VIAL IV ONE (04:04)
[2024-08-28 04:28] LABS: Pregnancy Test, Urine Negative (Negative)
[2024-08-28 04:31] LABS: Basophils # (auto) 0.02 K/uL (0.00-0.20); Basophils % (auto) 0.1 %; Hematocrit (blood only) 38.8 % (37.0-47.0); Hemoglobin 12.9 g/dl (12.0-16.0); Immature Granulocytes # (auto) 0.04 K/uL (0.01-0.20); Immature Granulocytes % (auto) 0.3 %; Lymphocytes % (auto) 8.9 %; Mean Corpuscular Hemoglobin 29.1 pg (25.0-34.0); Mean Corpuscular Hgb Conc 33.2 g/dL (32.0-36.0); Mean Corpuscular Volume 87.4 fL (80.0-100.0); Mean Platelet Volume 13.1 fL (9.4-12.4); Monocytes # (auto) 0.36 K/uL (0.11-0.59); Monocytes % (auto) 2.7 %; Neutrophils # (auto) 11.85 K/uL (1.40-6.50); Platelet Count 196 K/uL (130-400); RDW Coefficient of Variation 13.8 % (11.5-14.5); RDW Standard Deviation 43.6 fL (36.4-46.3); Red Blood Count 4.44 M/uL (4.20-5.40); White Blood Count 13.47 K/ul (4.8-10.8)
[2024-08-28 04:42] LABS: Appearance Urine Cloudy (Clear); Bacteria Urine Automated 2+ (None Seen); Bilirubin Urine Negative (Negative); Blood Urine Negative (Negative); Color Urine Yellow; Glucose Urine UA Trace (Negative); Ketones Urine Trace (Negative); Leukocyte Esterase Urine Negative (Negative); Nitrite Urine Negative (Negative); Protein Urine 1+ (Negative); RBC Urine Automated 0-2 /hpf (0-2); Specific Gravity Urine 1.025 (1.000-1.030); Urobilinogen Urine Negative (Negative)
[2024-08-28 05:05] LABS: Alanine Aminotransferase 62 U/L (7-52); Albumin Level 4.8 gm/dl (3.4-5.0); Alkaline Phosphatase 44 U/L (34-104); Anion Gap 14 (3-11); BUN Creatinine Ratio 15.6 (10-20); Bilirubin,Total 0.4 mg/dl (0.2-1.0); Blood Urea Nitrogen 12 mg/dl (6-23); Calcium 9.8 mg/dl (8.6-10.3); Carbon Dioxide 20 mmol/L (21-32); Chloride 102 mmol/L (98-107); Creatinine Clr Calc Pharmacy 87.9 ml/min; Glucose 167 mg/dl (70-99(Fasting)); Lipase 20 U/L (11-82); Sodium 136 mmol/L (136-145); Total Protein 8.1 gm/dl (6.0-8.3); Troponin I High Sensitivity 5.5 pg/ml (0-14)
[2024-08-28] MEDS: PANTOprazole 80 MG in DEXTROSE 5% 100 ML IV STA (05:21)
--- NOTE | 2024-08-28 05:26 | History & Physical Report ---
Date of Service August 28, 2024 Assessment & Plan (1) UTI (urinary tract infection): Plan: -UA positive for bacteria as well as white blood cells. -Cultures pending at this time. -Will start on ceftriaxone. (2) Chest pain: Plan: -Patient was burning chest pain that started after vomiting. -Troponin negative. EKG showed sinus rhythm with occasional PVCs. -Will continue to monitor the most likely heartburn secondary to vomiting. Low suspicion for cardiac causes. -Will start on Protonix 40 mg twice daily. Plan Fluids: LR at 125 mL an hour Nutrition: Clear liquids, advance as tolerated Code status: Full code DVT ppx: SCDs Dispo: med/surg History of Present Illness Chief Complaint: Intractable vomiting, UTI, chest pain Primary Care Provider: MELA CELIS Patient is a 18-year-old female who presents to the hospital with vomiting. Patient has a history of cyclic vomiting syndrome for the last 5 years. Previously noted that marijuana was the cause of these symptoms in the past. Patient has been admitted in the past for similar symptoms. Patient states that she has been cutting back on her marijuana use. Patient started vomiting yesterday morning. After vomiting she started to have chest pain as well. States that the chest pain is burning in nature. She initially came into the ED and was given IV Protonix, GI cocktail, droperidol, and Ativan. She said to have improving symptoms and was discharged home. She then returned to the ED with more diffuse abdominal cramping and vomiting. Denies any diarrhea. Denies any fevers, chills, or cough. Allergies Allergy/AdvReac Type Severity Reaction Status Date / Time No Known Allergies Allergy Verified 07/13/24 07:35 Home Medications Medication Instructions Recorded Confirmed Type Oral Contraceptive 1 tab PO DAILY 07/13/24 07/13/24 History Zofran 1 tab PO DIRECTED PRN n/v 07/13/24 07/13/24 History escitalopram oxalate 10 mg tablet 10 mg PO DAILY 07/13/24 07/13/24 History (Lexapro) hydroxyzine HCl 25 mg tablet 25 mg PO DIRECTED PRN anxiety 07/13/24 07/13/24 History famotidine 20 mg tablet (Pepcid) 20 mg PO DAILY #30 tabs 07/14/24 Rx Past Med/Surg History Problem List (Updated 08/28/24 @ 11:39 by Sherron Rebolledo, DO) Anxiety with depression Chest pain UTI (urinary tract infection) Gastritis (Acute) Cannabinoid hyperemesis syndrome (Acute) Medical History Cyclic vomiting syndrome Cannabinoid hyperemesis syndrome Surgical History History of esophagogastroduodenoscopy (EGD) Social History Smoking Status: Never smoker Second Hand Exposure: No; Do You Dip or Chew Tobacco: No; Hx Alcohol Use: Yes Alcohol type: beer Hx Substance Use: No Preferred Language: Georgian Communication Ability: Effective Director Volunteer Services Required: No Beliefs That Will Affect Care: None Current Living Situation: Other Current Living Situation Comment: Apartment w/students Other Information That Helps Us Care for You: No Feels Safe at Home: Yes Safety Concerns: Feels Safe At This Time Assistive Devices: None Review of Systems Review of Systems: All systems reviewed & are unremarkable except as noted in Subjective Physical Exam Physical Exam: Constitutional: well-appearing, uncomfortable, dry heaving. HEENT: NCAT, no conjunctival injection CV: regular rhythm, no murmur appreciated, extremities well-perfused, no LE edema Resp: CTABL, no wheezes/rales/rhonchi appreciated, no increased work of breathing GI: soft, nondistended, nontender, BS normoactive MSK: no gross deformities appreciated Skin: warm, dry, no rash appreciated Neuro: alert, oriented, no focal neurologic deficit appreciated Results & Data Results & Data Vital Signs (Past 12 Hours) Vital Signs Temp Pulse Resp BP Pulse Ox O2 Del Method 08/28/24 04:30 85 22 148/104 H 100 08/28/24 04:12 104 H 08/28/24 04:11 88 22 140/102 H 99 08/28/24 03:21 36.2 C L 107 H 18 142/108 H 96 Room Air
[2024-08-28] MEDS ORDERED: METOCLOPRAMIDE HCL INJ 5 MG/ML 2 ML VIAL IV PRN (08:33)
[2024-08-28] MEDS ORDERED: ONDANSETRON INJ 2 MG/ML 2 ML VIAL IV PRN (08:33)
[2024-08-28] MEDS ORDERED: POLYETHYLENE (MIRALAX) 17 GM PACK PO PRN (08:33)
[2024-08-28] MEDS ORDERED: ACETAMINOPHEN 325 MG TAB PO PRN (08:33)
[2024-08-28] MEDS: PANTOprazole 40 MG/10 ML SYR IV SCH (09:57)
[2024-08-28] MEDS: cefTRIAXone SODIUM 1,000 MG/50 ML BAG IV SCH (10:08)
[2024-08-28] MEDS: LACTATED RINGER'S 1,000 ML IV SCH (10:43)
[2024-08-28] MEDS: ESCITALOPRAM OXALATE 20 MG TAB PO SCH (10:59)
--- NOTE | 2024-08-28 11:34 | Hospitalist Progress Note ---
Date of Service August 28, 2024 Assessment & Plan (1) Intractable cyclical vomiting with nausea: Plan: -Patient has a history of cyclical vomiting syndrome as well as marijuana use, but cyclic vomiting preceded marijuana use. -Patient was initially given IV Protonix, GI cocktail, droperidol, and Ativan and was discharged from the ED. She returned hours later with continued nausea and vomiting. -Patient with slight leukocytosis of 13, anion gap of 14. ALT slightly elevated at 62. -continue IV Protonix, Zofran as needed, Reglan as needed. IVF LR while pt still sleeping and not yet taking po -Start on clear liquids and advance as tolerated. (2) UTI (urinary tract infection): Plan: -UA positive for bacteria as well as white blood cells. -Cultures pending at this time. - continue CTX pending cx - will do renal US for eval of pyelonephritis/hydronephrosis (3) Chest pain: Plan: -Patient was burning chest pain that started after vomiting. -Troponin negative. EKG showed sinus rhythm with occasional PVCs. -Will continue to monitor the most likely heartburn secondary to vomiting. Low suspicion for cardiac causes. - continue Protonix 40 mg twice daily. (4) Anxiety with depression: Plan: -takes 10 mg lexapro at home - will increase to 20 mg dosing here and on discharge Plan DVT ppx: SCDs as pt low risk for clot Admission and Anticipated Discharge Date Admission Date: August 28, 2024 Subjective Today, pt seen at bedside this morning an was very sedated. Of note, she received IV Benadryl and IV ativan at around 4 am this morning. She is arousable to voice but falls back asleep shortly after. She states she has been vomiting since yesterday, does not recall if she vomited since being here so far. She states her last marijuana use was last week. No urinary complaints at this time. Review of Systems Review of Systems: Per HPI. Physical Exam Physical Exam: General:Very sedated, arousable to voice but falls asleep quickly after HEENT: Normocephalic, moist oral mucosa, Cardio: Regular rate and rhythm, no murmur, Resp:Lungs clear to auscultation b/l, no wheezes or rhonchi, GI: Soft and nontender, nondistended, Skin: Warm, pink, dry, Results & Data Results & Data Vital Signs (Past 12 Hours) Vital Signs Temp Pulse Resp BP Pulse Ox O2 Del Method 08/28/24 07:45 76 98 08/28/24 07:00 138/95 08/28/24 07:00 138/95 08/28/24 07:00 138/95 08/28/24 07:00 138/95 08/28/24 07:00 138/95 08/28/24 07:00 84 100 08/28/24 07:00 15 08/28/24 07:00 Room Air 08/28/24 06:30 79 24 147/99 H 100 08/28/24 06:00 146/104 H 08/28/24 06:00 82 28 H 146/104 H 100 08/28/24 05:30 79 21 141/101 H 99 08/28/24 04:30 85 22 148/104 H 100 08/28/24 04:12 104 H 08/28/24 04:11 88 22 140/102 H 99 08/28/24 03:21 36.2 C L 107 H 18 142/108 H 96 Room Air Resident Activity Tracking Resident Involvement: Resident Care Provided Care Provided: Adult Hospital Medicine
[2024-08-28 12:07] VITALS: RESP 16
--- NOTE | 2024-08-28 12:19 | Ultrasound Report ---
RENAL ULTRASOUND HISTORY: Acute bilateral flank pain with urinary tract infection Hydronephrosis/pyelonephrosis? COMPARISON: CT 07/13/2024 FINDINGS: Right kidney: 10.0 cm. No hydronephrosis. Normal corticomedullary differentiation and cortical thickn ess. Left kidney: 9.9 cm. No hydronephrosis. Normal corticomedullary differentiation and cortical thicknes s. Bladder: No bladder wall thickening. The bilateral ureteral jets were identified. IMPRESSION: Normal renal ultrasound. ACT 112: Negative or not required by law. Electronically signed by: Wilson Stapleton M.D. 08/28/2024 12:18 PM
[2024-08-28 17:17] VITALS: BP 109/70; PULSE 97; TEMP 97.9; O2SAT 96
--- NOTE | 2024-08-28 17:48 | Discharge Summary ---
Date of Service August 28, 2024 Admission HPI Per Admitting Provider Patient is a 18-year-old female who presents to the hospital with vomiting. Patient has a history of cyclic vomiting syndrome for the last 5 years. Previously noted that marijuana was the cause of these symptoms in the past. Patient has been admitted in the past for similar symptoms. Patient states that she has been cutting back on her marijuana use. Patient started vomiting yesterday morning. After vomiting she started to have chest pain as well. States that the chest pain is burning in nature. She initially came into the ED and was given IV Protonix, GI cocktail, droperidol, and Ativan. She said to have improving symptoms and was discharged home. She then returned to the ED with more diffuse abdominal cramping and vomiting. Denies any diarrhea. Denies any fevers, chills, or cough. Admission Exam Per Admitting Provider Constitutional: well-appearing, uncomfortable, dry heaving. HEENT: NCAT, no conjunctival injection CV: regular rhythm, no murmur appreciated, extremities well-perfused, no LE edema Resp: CTABL, no wheezes/rales/rhonchi appreciated, no increased work of breathing GI: soft, nondistended, nontender, BS normoactive MSK: no gross deformities appreciated Skin: warm, dry, no rash appreciated Neuro: alert, oriented, no focal neurologic deficit appreciated Principal Diagnosis Nausea/vomiting, UTI Discharge Exam General:Alert and oriented, no acute distress HEENT: Normocephalic, moist oral mucosa, Cardio: Regular rate and rhythm, no murmur, Resp:Lungs clear to auscultation b/l, no wheezes or rhonchi, Skin: Warm, pink, dry, Discharge Data Allergies Allergy/AdvReac Type Severity Reaction Status Date / Time No Known Allergies Allergy Verified 08/28/24 17:25 Consultations 08/28/24 05:58 ED Decision to Admit Stat Ordered Studies 08/28/24 10:39 US Renal Bladder [US renal/blad retro comp] Routine Hospital Course (1) UTI (urinary tract infection): - UA positive for bacteria as well as white blood cells. - cultures pending at this time - renal US wnl - initially on CTX, will D/C with cefepime (2) Chest pain: -Patient was burning chest pain that started after vomiting. -Troponin negative. EKG showed sinus rhythm with occasional PVCs. -Will continue to monitor the most likely heartburn secondary to vomiting. Low suspicion for cardiac causes. - resolved as of earlier today (3) Anxiety with depression: -takes 10 mg lexapro at home - will increase to 20 mg dosing here and on discharge Total Time Total Time Spent Total Time Spent (In Minutes): As per attending attestation. Discharge Plan Discharge Items Patient Disposition: Home - Self-Care Reason For Visit: INTRACTABLE VOMITING, UTI, CHEST PAIN Discharge Diagnosis: Intractable vomiting, UTI GERD Activity: Resume your previous activity Non-emergency contact: Primary Care Provider Call non-emergency contact if: you have any medication questions Follow-up/Referrals: MELA CELIS [Other] Diet: Regular Addtl Attending Provider Instructions: You were admitted to the hospital for nausea with vomiting and chest discomfort. We believe the nausea and vomiting may be related to your chronic issues with cyclical nausea and vomiting but can also be due to a urinary tract infection. We believe the chest burning was most likely gastritis/esophagitis in relation to vomiting. As you are feeling better, we feel it is safe for you to go home at this time. We have increased your Lexapro dosing from 10 mg daily to 20 mg daily, which may help with your symptoms. A new script was sent to your pharmacy. We have also sent an antibiotic called cephalexin for your UTI. Please do not stop taking this early, even if you feel totally better. Your next dose of this medication will be tomorrow morning. You should take this twice daily as written on the bottle, morning and evening until out of pills. Please follow up with your family physician in one week. Pending Studies at Discharge: No Stand-Alone Forms: [facility], Smoking Cessation Medications and DC Order Prescriptions: New escitalopram oxalate 20 mg Tablet 20 mg PO QAM Qty: 30 0RF cephalexin 500 mg capsule 500 mg PO BID Qty: 8 0RF famotidine 20 mg tablet 20 mg PO BID Qty: 60 0RF Continued norethindrone-e.estradiol-iron [Tilia Fe] 1-20(5)/1-30(7) /1mg-35mcg (9) Tablet 1 tab PO DAILY hydroxyzine HCl 25 mg Tablet 25 mg PO UD PRN (Reason: anxiety ) famotidine [Pepcid] 20 mg tablet 20 mg PO DAILY Qty: 30 0RF Discontinued escitalopram oxalate [Lexapro] 10 mg Tablet 10 mg PO DAILY Discharge Orders: Discharge Order (Routine); Ordered 08/28/24 Ordered By: Meghna Hernandez Admission Data Admit Date/Time: 08/28/24 05:50 Attending Provider: Meghna Hernandez Admit Provider: Mario Baca Primary Care Provider: MELA CELIS Other Providers: Argenis Kumari Supervising Physician Co-Signing Physician Notes Attending Physician Supervision Note: I independently interviewed and examined the patient and verified the crain history and physical, reviewed labs and image studies and agree with findings and care plan noted above. Also, Famotidine prescription added for chronic symptoms of GERD. Resident Activity Tracking Resident Involvement: Resident Care Provided Care Provided: Adult Hospital Medicine
--- NOTE | 2024-08-30 13:42 | Electrocardiogram Report ---
Test Reason : Blood Pressure : */* mmHG Vent. Rate : 73 BPM Atrial Rate : 73 BPM P-R Int : 118 ms QRS Dur : 86 ms QT Int : 420 ms P-R-T Axes : 65 69 63 degrees QTcB Int : 462 ms Sinus rhythm with occasional Premature ventricular complexes Otherwise normal ECG When compared with ECG of 27-Aug-2024 17:24, Premature ventricular complexes are now Present QRS voltage has increased Nonspecific T wave abnormality no longer evident in Inferior leads Confirmed by Bradley Hernandez ([id number]) on 08/30/2024 1:41:38 PM Referred By: NO PCP Confirmed By: Bradley Hernandez
== END 2024-08-28 18:30 | disposition home or self-care (01) | DRG 392 ==
LOC: SUATTDRO → ED 03:17 → SUATTDRO 05:50 → 3W 05:50 → INTOOBSV 05:50 → 3W 08:13

== ENCOUNTER 2025-07-13 20:17 | Observation (INO) ==
[2025-07-13 20:26] VITALS: TEMP 98.4
[2025-07-13] MEDS: DROPERIDOL 5 MG/2 ML VIAL IV STA ×2 (20:28)
[2025-07-13] MEDS: diphenhydrAMINE 50 MG/ML VIAL IV STA (21:14)
[2025-07-13] MEDS: ACETAMINOPHEN 1,000 MG/100 ML VIAL IV STA (21:14)
[2025-07-13] MEDS: PROMETHAZINE 25 MG/51 ML BAG IV STA (21:23)
[2025-07-13 21:25] LABS: Anion Gap 14.0 (3-11); Blood Urea Nitrogen 16.0 mg/dl (6-23); Carbon Dioxide 17.0 mmol/L (21-32); Chloride 107.0 mmol/L (98-107); Potassium 3.6 mmol/L (3.5-5.1); Sodium 138.0 mmol/L (136-145)
[2025-07-13 21:26] LABS: Alanine Aminotransferase 15.0 U/L (7-52); Albumin Globulin Ratio 1.4 (0.9-2); Albumin Level 4.3 gm/dl (3.4-5.0); Alkaline Phosphatase 51.0 U/L (34-104); Bilirubin,Total 0.5 mg/dl (0.2-1.0); Calcium 9.4 mg/dl (8.6-10.3); Creatinine Clr Calc Pharmacy 74.1 ml/min; Globulin 3.0 gm/dl (2.5-4.0); Glucose 121.0 mg/dl (70-99(Fasting)); Total Protein 7.3 gm/dl (6.0-8.3)
[2025-07-13 21:44] LABS: Appearance Urine Clear (Clear); Bacteria Urine Automated 2+ (None Seen); Cast Urine Automated 0-2 /lpf (0-2); Glucose Urine UA Negative (Negative); RBC Urine Automated 0-2 /hpf (0-2)
[2025-07-13 22:04] LABS: Hematocrit (blood only) 36.4 % (37.0-47.0); Hemoglobin 12.2 g/dl (12.0-16.0); Mean Corpuscular Hemoglobin 29.5 pg (25.0-34.0); Mean Corpuscular Volume 87.9 fL (80.0-100.0); Platelet Count 212 K/uL (130-400); RDW Standard Deviation 44.1 fL (36.4-46.3); Red Blood Count 4.14 M/uL (4.20-5.40); White Blood Count 13.84 K/ul (4.8-10.8)
--- NOTE | 2025-07-13 22:43 | XRay Report ---
Exam(s): XR CXR 1 VIEW EXAM: XR Chest, 1 View CLINICAL HISTORY: Reason for exam: Chest pain, nonspecific. TECHNIQUE: Frontal view of the chest. COMPARISON: 01/06/2025 FINDINGS: Lungs: Unremarkable. No consolidation. Pleural space: Unremarkable. No pneumothorax. Heart: Unremarkable. No cardiomegaly. Mediastinum: Unremarkable. Normal mediastinal contour. Bones/joints: Unremarkable. No acute fracture. IMPRESSION: No acute pulmonary pathology Electronically signed by: Isaac Wiley MD 07/13/25 22:42 PM
--- NOTE | 2025-07-13 23:22 | Emergency Department Note ---
Impression & Plan Intractable cyclical vomiting syndrome, Cannabis abuse ED Provider Note CHIEF COMPLAINT: Cyclic vomiting HISTORY OF PRESENTING ILLNESS: Patient is a 19-year-old female presents to the emergency department today for complaints of cyclic vomiting. She reports heavy marijuana use over the past several days that typically induces cyclic vomiting. She also has used some alcohol in the past 2 to 3 days. She states she has abd pain and chest pain from vomiting so hard. Patient denies sob, breathing difficulties, headache, chance of , fevers/chills, blood in stool or urine, any recent illness, or any recent travel. REVIEW OF SYSTEMS: See HPI for pertinent positives and pertinent negatives. ALLERGIES: See below MEDICATIONS: See below PAST MEDICAL HISTORY: See below PHYSICAL EXAM: VITALS: Vitals are noted on the nurse's note and reviewed by myself. GENERAL: Non toxic, in no acute distress, non-diaphoretic. SKIN: Capillary refill <2 sec. EYES: PERRLA. EOMI. Conjunctivae without injection, sclerae without icterus. NOSE: Patent without discharge. MOUTH: Mucous membranes moist. Uvula midline. Airway patent. NECK: Supple without nuchal rigidity. HEART: Regular rate and rhythm without murmurs gallops or rubs. LUNGS: Clear to auscultation bilaterally without wheezes, rales or rhonchi. No retractions or accessory muscle use. ABDOMEN: Positive bowel sounds x 4. Normal tympanic percussion. Soft, nontender to palpation. NEURO: Patient was alert and oriented. No focal neurological deficits. DIFFERENTIAL DIAGNOSIS: Differential diagnosis includes appendicitis, diverticulitis, constipation, gastroenteritis, bowel obstruction, cholecystitis, appendicitis, inflammatory bowel disease, renal colic, PUD, biliary pathology, pancreatitis, mesenteric ischemia, aortic pathology, infection, genitourinary, UTI, perforated viscus, among others. ED COURSE AND MEDICAL DECISION MAKING: HISTORY FROM INDEPENDENT HISTORIAN: History was provided by the patient and 2 friends at the bedside who are secondary historians. MONITOR: Continuous manager monitoring: Order was placed for continuous manager monitoring. Patient was placed on the manager monitoring and continuous pulse ox. Patient was noted to be in normal sinus rhythm at an initial rate of 90 bpm per my interpretation. EKG: EKG was interpreted by myself as normal sinus rhythm with sinus arrhythmia at a rate of 78 bpm. INTERPRETATION OF LABS: I interpreted the labs with full lab results as below in the lab section of this note. Laboratory results pertinent to the emergent complaint are discussed in the MDM section below. The patient was advised to follow up with their PCP and/or specialist(s) for further outpatient monitoring and management of any abnormal results. INTERPRETATION OF IMAGING: Imaging studies were interpreted by myself and read by radiology as per the imaging section of this note. The patient was advised to follow up with their PCP and/or specialist(s) for further outpatient management of any non-emergent abnormal findings. CHRONIC MEDICAL/SOCIAL CONDITIONS AFFECTING CARE: No social concerns were identified as barriers to patients care. ESCALATION OF CARE CONSIDERED: I considered admission on this patient intractable and cyclic vomiting SUMMARY: I examined the patient for complaints of cyclic vomiting. A physical exam and history were performed. Nursing notes, EMR, and medication list were personally reviewed. CBC showed a leukocytosis with a white blood cell count of 13.84. No anemia or thrombocytopenia. CMP showed no emergent findings with his carbon dioxide of 17, anion gap of 14. Troponin was 3.1. Urinalysis was positive for leukocytes, white blood cells. X-ray of the chest showed no acute pulmonary pathology. I did discuss with the patient CT scan of the abdomen due to some abdominal pain but the patient declined a CT scan at this time. The patient was given droperidol 2.5 mg and 1 L of normal saline with minor improvement in vomiting. The patient was then given Phenergan 25 mg, Benadryl 25 mg, Tylenol 1 g with improvement in nausea, vomiting, pain. On reevaluation of the patient she reports feeling somewhat better but cannot be discharged home and would like to stay in the hospital. I consulted with Dr. Kumari for admission to the hospital and the patient was accepted. DIAGNOSIS: Cyclic vomiting, marijuana abuse TREATMENT PLAN/DISCHARGE INSTRUCTIONS: Admit to hospitalist services. The chart was completed utilizing [employer] Speech voice recognition software.Grammatical errors, random word insertions, pronoun errors, and incomplete sentences are an occasional consequence of this system due to software limitations, ambient noise, and hardware issues.Any formal questions or concerns about the content, text, or information contained within the body of this dictation should be directly addressed to the physician for clarification. Past Med/Surg History Problem List (Updated 07/13/25 @ 23:22 by EVARISTO Amado) Cannabis abuse (Acute) Intractable cyclical vomiting syndrome (Acute) Anxiety with depression Chest pain Gastritis (Acute) Medical History Intractable cyclical vomiting with nausea Cyclic vomiting syndrome Surgical History History of esophagogastroduodenoscopy (EGD) Social History Smoking Status: Current every day smoker Second Hand Exposure: No; Do You Dip or Chew Tobacco: No; Hx Alcohol Use: Yes Alcohol type: beer Hx Substance Use: No Preferred Language: [place] Communication Ability: Effective Clinical Consultant Required: No Beliefs That Will Affect Care: None Current Living Situation: Other Current Living Situation Comment: Apartment w/students Feels Safe at Home: Yes Assistive Devices: None Allergies Allergies Allergy/AdvReac Type Severity Reaction Status Date / Time No Known Allergies Allergy Verified 07/13/25 22:45 Home Meds Home Medications Medication Instructions Recorded Confirmed hydroxyzine HCl 25 mg tablet 25 mg PO UD PRN anxiety 07/13/24 07/13/25 escitalopram oxalate 20 mg tablet 20 mg PO DAILY 07/13/25 07/13/25 (Lexapro) Previous Rx's Medication Instructions Recorded famotidine 20 mg tablet 20 mg PO BID #60 tabs 08/28/24 Results & Data (ED) Vital Signs Vital Signs - 24 hr 07/13/25 20:25 07/13/25 21:30 Temperature 36.9 C Temperature Source Oral Pulse Rate 79 Pulse Rate [Apical] 90 Respiratory Rate 18 18 Blood Pressure 142/100 H Blood Pressure [Right Arm] 131/90 Blood Pressure Mean 114 Blood Pressure Mean [Right Arm] 103 Pulse Oximetry 99 100 Oxygen Delivery Method Room Air Sepsis Recent Fever Within 48 Hours No Sepsis New/Unexplained Change in Mental Status No Sepsis Action Taken by Nursing No Action Required Laboratory Data 07/13/25 20:22 07/13/25 20:22 Lab Results 07/13/25 07/13/25 Range/Units 20:22 Unknown WBC 13.84 H (4.8-10.8) K/ul RBC 4.14 L (4.20-5.40) M/uL Hgb 12.2 (12.0-16.0) g/dl Hct 36.4 L (37.0-47.0) % MCV 87.9 (80.0-100.0) fL MCH 29.5 (25.0-34.0) pg MCHC 33.5 (32.0-36.0) g/dL RDW Std Deviation 44.1 (36.4-46.3) fL RDW Coeff of Bienvenido 13.8 (11.5-14.5) % Plt Count 212 (130-400) K/uL MPV 13.3 H (9.4-12.4) fL Sodium 138 (136-145) mmol/L Potassium 3.6 (3.5-5.1) mmol/L Chloride 107 (98-107) mmol/L Carbon Dioxide 17 L (21-32) mmol/L Anion Gap 14 H (3-11) BUN 16 (6-23) mg/dl Creatinine 0.99 (0.6-1.2) mg/dl Est Cr Clr Drug Dosing 74.1 ml/min eGFR 83.20 BUN/Creatinine Ratio 16.2 (10-20) Glucose 121 H (70-99(Fasting)) mg/dl Calcium 9.4 (8.6-10.3) mg/dl Total Bilirubin 0.5 (0.2-1.0) mg/dl AST 21 (13-39) U/L ALT 15 (7-52) U/L Alkaline Phosphatase 51 (34-104) U/L Troponin I High Sens 3.1 (0-14) pg/ml Total Protein 7.3 (6.0-8.3) gm/dl Albumin 4.3 (3.4-5.0) gm/dl Globulin 3.0 (2.5-4.0) gm/dl Albumin/Globulin Ratio 1.4 (0.9-2) Urine Color Yellow Urine Appearance Clear (Clear) Urine pH 6.5 (4.5-7.5) Ur Specific [place] 1.012 (1.000-1.030) Urine Protein Negative (Negative) Urine Glucose (UA) Negative (Negative) Urine Ketones 1+ H (Negative) Urine Blood Negative (Negative) Urine Nitrite Negative (Negative) Urine Bilirubin Negative (Negative) Urine Urobilinogen Negative (Negative) Ur Leukocyte Esterase 2+ H (Negative) Urine WBC (Auto) 6-10 H (0-5) /hpf Urine RBC (Auto) 0-2 (0-2) /hpf U Hyaline Cast (Auto) 0-2 (0-2) /lpf U Epithel Cells (Auto) 6-10 H (0-2) /hpf Urine Bacteria (Auto) 2+ H (None Seen) Urine Comment Administered Medications Discontinued Medications Diphenhydramine HCl (Diphenhydramine 50 Mg/Ml Vial) 25 mg IV NOW STA Stop: 07/13/25 21:03 Last Admin: 07/13/25 21:14 Dose: 25 mg Documented By: AZUL Droperidol (Droperidol 5 Mg/2 Ml Vial) 5 mg IV ONE STA Stop: 07/13/25 20:25 Last Admin: 07/13/25 20:28 Dose: Not Given Documented By: AZUL Droperidol (Droperidol 5 Mg/2 Ml Vial) 2.5 mg IV ONE STA Stop: 07/13/25 20:26 Last Admin: 07/13/25 20:28 Dose: 2.5 mg Documented By: AZUL Promethazine HCl (Phenergan) 25 mg in 51 mls @ 204 mls/hr IV NOW STA Stop: 07/13/25 21:16 Last Infusion: 07/13/25 21:49 Dose: Infused Documented By: Admin: 07/13/25 21:23 Dose: 204 mls/hr Documented By: AZUL Acetaminophen (Ofirmev) 1,000 mg in 100 mls @ 400 mls/hr IV NOW STA Stop: 07/13/25 21:16 Last Infusion: 07/13/25 21:23 Dose: Infused Documented By: Admin: 07/13/25 21:14 Dose: 400 mls/hr Documented By: AZUL Imaging Data Radiologist's Impression: Chest X-Ray 07/13/25 21:03 Exam(s): XR CXR 1 VIEW EXAM: XR Chest, 1 View CLINICAL HISTORY: Reason for exam: Chest pain, nonspecific. TECHNIQUE: Frontal view of the chest. COMPARISON: 01/06/2025 FINDINGS: Lungs: Unremarkable. No consolidation. Pleural space: Unremarkable. No pneumothorax. Heart: Unremarkable. No cardiomegaly. Mediastinum: Unremarkable. Normal mediastinal contour. Bones/joints: Unremarkable. No acute fracture. IMPRESSION: No acute pulmonary pathology Electronically signed by: Isaac Wiley MD 07/13/25 22:42 PM Discharge Plan Visit Data Chief Complaint: Vomiting Stated Complaint: VOMITING ED Provider: Su Abel ED Midlevel Provider: Cherry Conde Discharge Problem: Intractable cyclical vomiting syndrome, Cannabis abuse Patient Disposition: Admitted As Inpatient Condition: Good Forms Stand Alone Forms: My [facility] Prescriptions Prescriptions: No Action famotidine 20 mg tablet 20 mg PO BID Qty: 60 0RF hydroxyzine HCl 25 mg Tablet 25 mg PO UD PRN (Reason: anxiety ) escitalopram oxalate [Lexapro] 20 mg Tablet 20 mg PO DAILY Referrals Referrals: [facility] [Primary Care Provider] -
[2025-07-13] MEDS: SODIUM CHLORIDE 0.9% 1,000 ML IV ONE (23:26)
--- NOTE | 2025-07-13 23:32 | History & Physical Report ---
Date of Service July 13, 2025 Assessment & Plan (1) Intractable cyclical vomiting syndrome: (2) Cannabis abuse: (3) Asymptomatic bacteriuria: Plan 19-year-old female PMHx cyclic vomiting with marijuana use, anxiety, depression and gastritis presenting for cyclic vomiting beginning day REPORT CLERK. Evaluation significant for mild leukocytosis of 13.4, anion gap of 14 and CO2 of 17. Her UA is suggestive of a possible infection however the patient is without symptoms. Patient to be admitted for cyclic vomiting, intractable, and does not feel that she can go home. #Intractable cyclic vomiting/Cannabis abuse History of cyclic vomiting for past 5 years, often associated with marijuana use. 2 days REPORT CLERK did smoke marijuana and drink alcohol. Does not feel that she is safe to go home. - CBC leukocytosis 13.4; AG 14, CO2 17, no electrolyte abnormalities otherwise - BMP am - UDS pending, alcohol level pending, test pending - EKG QT/QTc 392/446 - LR @ 125 mL/hr - Zofran + Compazine IV prn N/V - Acetaminophen prn pain/fever - Famotidine IV BID - EKG am to monitor QT #Asymptomatic bacteruria Asx; no history of Pseudomonas. - CBC mild leukocytosis 13.4, stable renal function - UA suggestive of infection; pending cx - Deferred abx at time of admission given asx #Psych- Lexapro, hydroxyzine prn- continue #Gastritis- Famotidine adjusted to IV - continue Dispo: Obs, med/sx VTE Prophylaxis: SCDs This document was dictated utilizing [employer]. Please excuse any grammatical errors that may be secondary to use of this software. Admission and Anticipated Discharge Date Admission Date: 07/13/2025 History of Present Illness Chief Complaint: Vomiting Primary Care Provider: [facility] 19-year-old female PMHx cyclic vomiting with marijuana use, anxiety, depression and gastritis presenting for cyclic vomiting beginning day REPORT CLERK. History is very limited as the patient is not answering all the questions that are being asked. When asked how she feels she says "decent". States that the last time she threw up was "before the ER" but then states that she threw up in the ER. Unable to tell me how many times she was thrown up. States that this started approximately 1 to 2 days ago which was the last time that she smoked marijuana and drink alcohol. She states that her stomach is bothering her, does not add anything else to this and unable to tell me quality or quantity of the pain. Admits to some chest discomfort. Does not feel dizzy but shakes her head yes when asked if she feels as though she may pass out. Again, patient's history is very limited. Patient does not answer question when asked when her last known period was or if there is a chance of . Patient offered to go home with antiemetics and encouraged to increase fluid intake as able, states she is unable to go home because she does not feel safe doing so. ED evaluation reveals CBC leukocytosis 13.84, H&H 12.2/36.4; CMP AG 14, CO2 17, glucose 121; troponin 3.1; UA suggestive of possible UTI; CXR no acute findings; EKG NSR with sinus arrhythmia possible LAE at 78 bpm.; Provided with promethazine to evaluate IV, droperidol 5 mg IV and 2.5 mg IV, diphenhydramine 25 mg IV, and acetaminophen 1 g IV in ED. Please see Dr. Kumari's attestation for adjustments/additions to treatment plan. Allergies Allergy/AdvReac Type Severity Reaction Status Date / Time No Known Allergies Allergy Verified 07/13/25 22:45 Home Medications Medication Instructions Recorded Confirmed Type hydroxyzine HCl 25 mg tablet 25 mg PO UD PRN anxiety 07/13/24 07/13/25 History famotidine 20 mg tablet 20 mg PO BID #60 tabs 08/28/24 07/13/25 Rx escitalopram oxalate 20 mg tablet 20 mg PO DAILY 07/13/25 07/13/25 History (Lexapro) Past Med/Surg History Problem List (Updated 07/13/25 @ 23:41 by Anuradha Lin PA-C) Asymptomatic bacteriuria Cannabis abuse (Acute) Intractable cyclical vomiting syndrome (Acute) Anxiety with depression Chest pain Gastritis (Acute) Medical History Intractable cyclical vomiting with nausea Cyclic vomiting syndrome Surgical History History of esophagogastroduodenoscopy (EGD) Social History Smoking Status: Never smoker Second Hand Exposure: No; Do You Dip or Chew Tobacco: No; Hx Alcohol Use: No Hx Substance Use: No Preferred Language: [place] Communication Ability: Effective Software Test And Validation Engineer Required: No Beliefs That Will Affect Care: None Current Living Situation: Other Current Living Situation Comment: Apartment w/students Feels Safe at Home: Yes Assistive Devices: None Review of Systems Review of Systems: All systems reviewed & are unremarkable except as noted in Subjective Physical Exam Physical Exam: General: No acute distress Skin: Warm and dry Head: Normocephalic, atraumatic Eyes: PERRL, conjunctivae clear, sclera non-icteric ENT: External ear and ear canal without swelling; nose atraumatic; good dentition, tongue normal appearance, pharynx normal Neck: Supple, no LAD Cardio: RRR, no M/G/R, S1 and S2 normal Resp: No respiratory distress, Lungs CTA in all lobes bilaterally, no wheezes, rales, or rhonchi Abdomen: Soft, symmetric, nontender; No masses or hepatosplenomegaly; Bowel so unds normoactive MSK: No deformities; pulses palpable and equal; no edema. Neuro: Awake, alert; Sensation intact bilaterally; CN grossly intact Psych: Very limited history as she is refusing to respond. Results & Data Results & Data Vital Signs (Past 12 Hours) Vital Signs Temp Pulse Pulse Resp BP BP Pulse Ox 07/13/25 21:30 90 18 131/90 100 07/13/25 20:25 36.9 C 79 18 142/100 H 99 O2 Del Method 07/13/25 21:30 Room Air 07/13/25 20:25 Laboratory Results 07/13/25 07/13/25 Unknown 20:22 WBC 13.84 H RBC 4.14 L Hgb 12.2 Hct 36.4 L MCV 87.9 MCH 29.5 MCHC 33.5 RDW Std Deviation 44.1 RDW Coeff of Bienvenido 13.8 Plt Count 212 MPV 13.3 H Sodium 138 Potassium 3.6 Chloride 107 Carbon Dioxide 17 L Anion Gap 14 H BUN 16 Creatinine 0.99 Est Cr Clr Drug Dosing 74.1 eGFR 83.20 BUN/Creatinine Ratio 16.2 Glucose 121 H Calcium 9.4 Total Bilirubin 0.5 AST 21 ALT 15 Alkaline Phosphatase 51 Troponin I High Sens 3.1 Total Protein 7.3 Albumin 4.3 Globulin 3.0 Albumin/Globulin Ratio 1.4 Urine Color Yellow Urine Appearance Clear Urine pH 6.5 Ur Specific [place] 1.012 Urine Protein Negative Urine Glucose (UA) Negative Urine Ketones 1+ H Urine Blood Negative Urine Nitrite Negative Urine Bilirubin Negative Urine Urobilinogen Negative Ur Leukocyte Esterase 2+ H Urine WBC (Auto) 6-10 H Urine RBC (Auto) 0-2 U Hyaline Cast (Auto) 0-2 U Epithel Cells (Auto) 6-10 H Urine Bacteria (Auto) 2+ H Urine Comment Diagnostic Findings Chest X-Ray 07/13/25 21:03 Exam(s): XR CXR 1 VIEW EXAM: XR Chest, 1 View CLINICAL HISTORY: Reason for exam: Chest pain, nonspecific. TECHNIQUE: Frontal view of the chest. COMPARISON: 01/06/2025 FINDINGS: Lungs: Unremarkable. No consolidation. Pleural space: Unremarkable. No pneumothorax. Heart: Unremarkable. No cardiomegaly. Mediastinum: Unremarkable. Normal mediastinal contour. Bones/joints: Unremarkable. No acute fracture. IMPRESSION: No acute pulmonary pathology Electronically signed by: Isaac Wiley MD 07/13/25 22:42 PM Medications Administered Promethazine 25 mg IV Droperidol 5 mg IV, 2.5 mg IV Diphenhydramine 25 mg IV Acetaminophen 1 g IV ECG Additional Comments: NSR with sinus arrhythmia, possible LAE 70 bpm, [place] 142, QRS 78, QT/QTc 392/446, PRT 82/71/67 Code Status & VTE Plan Code Status Full Supervising Physician Co-Signing Physician Notes patient seen examined, chart reviewed, case discussed with CHRIS Lin I agree with assessment plan as documented above. Intractable nausea and vomiting likely secondary to cannabis use. Patient has been hospitalized several times for the same. She should stop using cannabis altogether to avoid future hospitalizations, abdominal pain and distress IV fluid and symptomatic management with Zofran and Compazine as needed Pepcid IV twice daily Remainder as above PG Care Time/CCT Total # of Minutes Spent Total Time Spent with Patient: Total time spent is greater than 50% in coordination of care (as documented) at patient's floor/unit and/or counseling patient: Coding Level of Care Code 03161 INT INP/OBS CARE 2/55MIN Diagnoses Intractable cyclical vomiting syndrome R11.15 Cannabis abuse F12.10 Asymptomatic bacteriuria R82.71
[2025-07-13 23:37] LABS: ALC (manual) 7.20 K/uL (1.2-3.4); ANC (manual) 6.23 K/uL (1.4-6.5); Large Granular Lymph # (manua 3.04 K/uL; Large Granular Lymph % (manual) 22 %; Pregnancy Test, Serum Negative (Negative); RBC Morphology Unremarkable
[2025-07-14] MEDS: FAMOTIDINE 20MG IV PUSH 20 MG/5 ML SYR IV STA (00:02)
[2025-07-14] MEDS ORDERED: ALUMINUM/MAGNESIUM SUSP 30 ML UDC PO PRN (01:02)
[2025-07-14] MEDS ORDERED: MELATONIN 3 MG TAB PO PRN (01:02)
[2025-07-14 01:20] LABS: Amphetamines+Metham, Urine Neg (Neg); MDMA (Ecstacy), Urine Neg (Neg); Marijuana, Urine Pos (Neg)
[2025-07-14] MEDS: LACTATED RINGER'S 1,000 ML IV SCH (01:51)
[2025-07-14 02:20] LABS: Hematocrit (blood only) 39.0 % (37.0-47.0); Hemoglobin 12.6 g/dl (12.0-16.0); Mean Corpuscular Hemoglobin 28.6 pg (25.0-34.0); Mean Corpuscular Volume 88.4 fL (80.0-100.0); Platelet Count 181 K/uL (130-400); RDW Standard Deviation 45.3 fL (36.4-46.3); Red Blood Count 4.41 M/uL (4.20-5.40); White Blood Count 12.51 K/ul (4.8-10.8)
[2025-07-14 02:38] LABS: Anion Gap 14.0 (3-11); Calcium 9.3 mg/dl (8.6-10.3); Carbon Dioxide 19.0 mmol/L (21-32); Chloride 102.0 mmol/L (98-107); Potassium 3.4 mmol/L (3.5-5.1); Sodium 135.0 mmol/L (136-145)
[2025-07-14 02:44] LABS: Blood Urea Nitrogen 10.0 mg/dl (6-23); Creatinine Clr Calc Pharmacy 94.1 ml/min; Glucose 141.0 mg/dl (70-99(Fasting))
[2025-07-14] MEDS: ONDANSETRON INJ 2 MG/ML 2 ML VIAL IV PRN (04:29)
[2025-07-14] MEDS: PROCHLORPERAZINE 5 MG in SYRINGE 4 ML IV PRN (05:46)
--- NOTE | 2025-07-14 09:03 | Discharge Summary ---
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 Evaluation significant for mild leukocytosis of 13.4, anion gap of 14 and CO2 of 17. Her UA is suggestive of a possible infection however the patient is without symptoms. Patient to be admitted for cyclic vomiting, intractable, and does not feel that she can go home. #Intractable cyclic vomiting/Cannabis abuse History of cyclic vomiting for past 5 years, often associated with marijuana use. 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 Does not feel that she is safe to go home. Refused AM labs. s/p IVF Sent home w/ Zofran to use prn for further n/v continue pepcid strongly encourage cannabis cessation. - Patient reports on dc that it is not marijuana causing her symptoms. #Asymptomatic bacteruria Asx; no history of Pseudomonas. Defer abx on dc. Culture was not sent. #Psych- Lexapro, hydroxyzine prn- continue #Gastritis- Famotidine adjusted to IV - continue Discharged home 07/14. Admission HPI Per Admitting Provider 19-year-old female PMHx cyclic vomiting with marijuana use, anxiety, depression and gastritis presenting for cyclic vomiting beginning day [employer] TRA[employer]. History is very limited as the patient is not answering all the questions that are being asked. When asked how she feels she says "decent". States that the last time she threw up was "before the ER" but then states that she threw up in the ER. Unable to tell me how many times she was thrown up. States that this started approximately 1 to 2 days ago which was the last time that she smoked marijuana and drink alcohol. She states that her stomach is bothering her, does not add anything else to this and unable to tell me quality or quantity of the pain. Admits to some chest discomfort. Does not feel dizzy but shakes her head yes when asked if she feels as though she may pass out. Again, patient's history is very limited. Patient does not answer question when asked when her last known period was or if there is a chance of . Patient offered to go home with antiemetics and encouraged to increase fluid intake as able, states she is unable to go home because she does not feel safe doing so. ED evaluation reveals CBC leukocytosis 13.84, H&H 12.2/36.4; CMP AG 14, CO2 17, glucose 121; troponin 3.1; UA suggestive of possible UTI; CXR no acute findings; EKG NSR with sinus arrhythmia possible LAE at 78 bpm.; Provided with promethazine to evaluate IV, droperidol 5 mg IV and 2.5 mg IV, diphenhydramine 25 mg IV, and acetaminophen 1 g IV in ED. Please see Dr. Kumari's attestation for adjustments/additions to treatment plan. Discharge Exam General: NAD, VS: BP 136/82; P68; R17; T36.9 Resp: normal respiratory effort,= Abd: soft, +BS, nontender Extremities: Moves all extremities, no edema Neuro: A&O x3 Skin: intact, no lesions noted Discharge Plan Discharge Items Patient Disposition: Home - Self-Care Reason For Visit: CYCLIC VOMITING Discharge Diagnosis: Cyclical Vomiting Condition on Discharge: Good Activity: Resume your previous activity Non-emergency contact: Primary Care Provider Call non-emergency contact if: you have any medication questions and your symptoms worsen Follow-up/Referrals: [facility] [Primary Care Provider] - Diet: Regular Addtl Attending Provider Instructions: Ms. Schultz, You were recently hospitalized overnight for nausea and vomiting. This morning, you were feeling well prior to discharge. In the future, it is recommended to avoid marijuana as this can cause worsening nausea and vomiting. Medications: Your medication list has been reviewed and reconciled upon discharge to ensure accuracy and continuity of care. An updated list of all your medications is included with your hospital discharge paperwork. Please review this list closely, and make note of any changes. Please use Zofran 4mg every 4 hours as needed for nausea or vomiting. Take your medications as instructed; do not skip a dose of your medicines. Make sure all of your doctors know every medicine you are taking (including qxfq-ukx-saleexa medicines, vitamins, and supplements). Call your primary care provider before taking any new medicines (including over- the-counter medicines, vitamins, and supplements), because some of these may interact with your current medications, or may make your symptoms worse. Tell your primary care provider if you cannot afford your medications. Activity: You can do normal everyday activities as your body allows. Take rest breaks if you feel tired. Do not overexert. Stop activity if you have pain, shortness of breath or feel dizzy. Follow-up appointments: Make an appointment with your primary care physician within one week of discharge. A copy of this summary will be sent to them. Every time you see your primary care physician, or any other doctor, bring your medication list, and a list of questions. CONTACT YOUR PRIMARY CARE PROVIDER if you experience any of the following: Shortness of breath or difficulty breathing Fevers or chills Feeling tired with normal activity or experiencing dizziness or fainting Difficulty following your treatment plan, or difficulty taking medications CALL 911 OR GO TO THE EMERGENCY DEPARTMENT if you experience any of the following: Severe abdominal pain or nausea/vomiting Severe chest pain, or chest pain that radiates (moves) to your jaw or arm Sudden, severe shortness of breath or difficulty breathing Thank you for allowing us to participate in your care. Pending Studies at Discharge: No Stand-Alone Forms: My [facility] [place], Smoking Cessation Medications and DC Order Prescriptions: New ondansetron 4 mg tablet,disintegrating 4 mg PO Q4H PRN (Reason: nausea and vomiting) Qty: 30 0RF Continued famotidine 20 mg tablet 20 mg PO BID Qty: 60 0RF hydroxyzine HCl 25 mg Tablet 25 mg PO UD PRN (Reason: anxiety ) escitalopram oxalate [Lexapro] 20 mg Tablet 20 mg PO DAILY Discharge Orders: Discharge Order (Routine); Ordered 07/14/25 Ordered By: Jodie Evans Admission Data Admit Date/Time: 07/13/25 23:30 Attending Provider: Adrian Pastrana Admit Provider: Argenis Kumari Primary Care Provider: [facility] Other Providers: Argenis Kumari Other Interventions: Discharge Summary Assessment (RN) Last Done: 07/14/25 10:44 Hospital Stay Data Consultations 07/13/25 23:12 ED Decision to Admit Stat Pending Results Patient Have Any Pending Studies at Discharge: No Discharge Instructions Given to Patient (Per Discharging Provider) Ms. Schultz, Randy were recently hospitalized overnight for nausea and vomiting. This morning, you were feeling well prior to discharge. In the future, it is recommended to avoid marijuana as this can cause worsening nausea and vomiting. Medications: Your medication list has been reviewed and reconciled upon discharge to ensure accuracy and continuity of care. An updated list of all your medications is included with your hospital discharge paperwork. Please review this list closely, and make note of any changes. Please use Zofran 4mg every 4 hours as needed for nausea or vomiting. Take your medications as instructed; do not skip a dose of your medicines. Make sure all of your doctors know every medicine you are taking (including rjfc-fun-sofllkl medicines, vitamins, and supplements). Call your primary care provider before taking any new medicines (including over- the-counter medicines, vitamins, and supplements), because some of these may interact with your current medications, or may make your symptoms worse. Tell your primary care provider if you cannot afford your medications. Activity: You can do normal everyday activities as your body allows. Take rest breaks if you feel tired. Do not overexert. Stop activity if you have pain, shortness of breath or feel dizzy. Follow-up appointments: Make an appointment with your primary care physician within one week of discharge. A copy of this summary will be sent to them. Every time you see your primary care physician, or any other doctor, bring your medication list, and a list of questions. CONTACT YOUR PRIMARY CARE PROVIDER if you experience any of the following: Shortness of breath or difficulty breathing Fevers or chills Feeling tired with normal activity or experiencing dizziness or fainting Difficulty following your treatment plan, or difficulty taking medications CALL 911 OR GO TO THE EMERGENCY DEPARTMENT if you experience any of the following: Severe abdominal pain or nausea/vomiting Severe chest pain, or chest pain that radiates (moves) to your jaw or arm Sudden, severe shortness of breath or difficulty breathing Thank you for allowing us to participate in your care. Total Time Total Time Spent Total Time Spent (In Minutes): 35 Total Time Includes: Examination of the Patient, Discharge Planning and Medication Reconciliation Coding Level of Care Code 15398 INP/OBS DISCH >30 MIN Diagnoses Intractable cyclical vomiting syndrome R11.15 Cannabis abuse F12.10 Asymptomatic bacteriuria R82.71
[2025-07-14] MEDS: FAMOTIDINE 20MG IV PUSH 20 MG/5 ML SYR IV SCH (09:27)
[2025-07-14] MEDS: ESCITALOPRAM OXALATE 20 MG TAB PO SCH (09:28)
[2025-07-14] MEDS: FAMOTIDINE 20 MG TAB PO SCH (09:30)
[2025-07-14 09:46] VITALS: PULSE 68; RESP 17; O2SAT 97
[2025-07-14] MEDS: SUCRALFATE 1 GM/10 ML UDC PO SCH (10:17)
[2025-07-14 10:46] VITALS: BP 136/82
--- NOTE | 2025-07-14 18:09 | Electrocardiogram Report ---
Test Reason : Blood Pressure : */* mmHG Vent. Rate : 78 BPM Atrial Rate : 78 BPM P-R Int : 142 ms QRS Dur : 78 ms QT Int : 392 ms P-R-T Axes : 82 71 67 degrees QTcB Int : 446 ms Normal sinus rhythm with sinus arrhythmia Possible Left atrial enlargement Borderline ECG When compared with ECG of 06-Jan-2025 07:39, No significant change was found Confirmed by Eric Luque ([id number]) on 07/14/2025 6:09:31 PM Referred By: REFERRED SELF Confirmed By: Eric Luque
--- NOTE | 2025-07-14 18:17 | Electrocardiogram Report ---
Test Reason : Blood Pressure : */* mmHG Vent. Rate : 86 BPM Atrial Rate : 86 BPM P-R Int : 132 ms QRS Dur : 74 ms QT Int : 402 ms P-R-T Axes : 73 72 72 degrees QTcB Int : 481 ms Normal sinus rhythm Possible Left atrial enlargement Prolonged QT Abnormal ECG When compared with ECG of 13-Jul-2025 21:55, (unconfirmed) No significant change was found Confirmed by Eric Luque ([id number]) on 07/14/2025 6:16:47 PM Referred By: REFERRED SELF Confirmed By: Eric Luque
[2025-07-16 11:02] LABS: Marijuana Quant, GCMS Urine 115 ng/mL (<5)
== END 2025-07-14 10:46 | disposition home or self-care (01) ==
LOC: EDINP 20:17 → ED 20:17 → SUATTDRO 23:30 → EDINP 07-14 01:04

== ENCOUNTER 2025-07-14 12:45 | Observation (INO) ==
--- NOTE | 2025-07-14 13:28 | Emergency Department Note ---
Impression & Plan Intractable cyclical vomiting syndrome, Anxiety with depression ED Provider Note CHIEF COMPLAINT: cyclic vomiting HISTORY OF PRESENTING ILLNESS: Patient is a 19-year-old female presents to the emergency department today for complaints of cyclic vomiting. She was seen here in the emergency department last night and was admitted overnight. She reports being discharged this morning around 10:30 AM and has not stopped vomiting since she left. She got home and called EMS and was brought into the ER. She does report marijuana use 2 days ago as well as alcohol and has been vomiting since. Her cyclic vomiting is typically induced by marijuana use. She denies using any marijuana upon discharge today. She denies any current abdominal pain but does report pain from vomiting consistently. Patient denies chest pain, sob, breathing difficulties, abdominal pain, headache, fevers/chills, blood in stool or urine, any recent illness, or any recent travel. REVIEW OF SYSTEMS: See HPI for pertinent positives and pertinent negatives. ALLERGIES: See below MEDICATIONS: See below PAST MEDICAL HISTORY: See below PHYSICAL EXAM: VITALS: Vitals are noted on the nurse's note and reviewed by myself. Patient actively vomiting on exam. GENERAL: Non toxic, in no acute distress, non-diaphoretic. SKIN: Capillary refill <2 sec. EYES: PERRLA. EOMI. Conjunctivae without injection, sclerae without icterus. NOSE: Patent without discharge. MOUTH: Mucous membranes moist. Uvula midline. Airway patent. HEART: Regular rate and rhythm without murmurs gallops or rubs. LUNGS: Clear to auscultation bilaterally without wheezes, rales or rhonchi. No retractions or accessory muscle use. ABDOMEN: Positive bowel sounds x 4. Normal tympanic percussion. Soft, nontender to palpation. No masses or hepatosplenomegaly. Toussaint sign negative. No CVA tenderness. No guarding, rigidity, or rebound tenderness. No focal RLQ or LLQ tenderness. MUSCULOSKELETAL: No gross musculoskeletal defects. NEURO: Patient was alert and oriented. No focal neurological deficits. DIFFERENTIAL DIAGNOSIS: Differential diagnosis includes appendicitis, diverticulitis, constipation, gastroenteritis, bowel obstruction, cholecystitis, appendicitis, inflammatory bowel disease, renal colic, PUD, biliary pathology, pancreatitis, mesenteric ischemia, aortic pathology, infection, genitourinary, UTI, perforated viscus, among others. ED COURSE AND MEDICAL DECISION MAKING: HISTORY FROM INDEPENDENT HISTORIAN: History was provided by the patient. MONITOR: Continuous environmental monitoring technician: Order was placed for continuous environmental monitoring technician. Patient was placed on the environmental monitoring technician and continuous pulse ox. Patient was noted to be in normal sinus rhythm at an initial rate of 102 bpm per my interpretation. EKG: EKG was interpreted by myself as normal sinus rhythm with a prolonged QT at a rate of 86 bpm. INTERPRETATION OF LABS: I interpreted the labs with full lab results as below in the lab section of this note. Laboratory results pertinent to the emergent complaint are discussed in the MDM section below. The patient was advised to follow up with their PCP and/or specialist(s) for further outpatient monitoring and management of any abnormal results. INTERPRETATION OF IMAGING: Imaging studies were interpreted by myself and read by radiology as per the imaging section of this note. The patient was advised to follow up with their PCP and/or specialist(s) for further outpatient management of any non-emergent abnormal findings. CHRONIC MEDICAL/SOCIAL CONDITIONS AFFECTING CARE: No social concerns were identified as barriers to patients care. SUMMARY: I examined the patient for complaints of cyclic vomiting syndrome. A physical exam and history were performed. Nursing notes, EMR, and medication list were personally reviewed. On exam patient was actively vomiting and was ordered Benadryl 25 mg and Compazine 5 mg as well as 1 L of normal saline. She did have improvement in vomiting. CBC showed a leukocytosis with a white blood cell count of 15.46. There was no anemia or thrombocytopenia. CMP did show a sodium of 133, potassium of 3.3, carbon dioxide 15, anion gap 20, magnesium was 1.4. hCG quantitative was negative. I discussed disposition with the patient and she does not feel she is able to go home without vomiting. As she is unable to take anything by mouth without vomiting immediately after. We did discuss that she was just discharged a few hours prior to arrival today as she had refused lab work and further treatment as an inpatient. She states that she would be agreeable to staying as an inpatient and will agree to the plan of care. I did discuss a p.o. trial with the patient and she was willing to attempt some crackers and edward tatiana. 20 minutes after eating the patient did start vomiting again. She was ordered Reglan 5 mg IV and had improvement in vomiting. I did speak with case management about getting the patient GI follow-up after discharge. A referral was placed and they will try to coordinate her an appointment sooner rather than later. I consulted with Dr. Guy for admission to the hospital. The patient was accepted. DIAGNOSIS: cyclic vomiting syndrome TREATMENT PLAN/DISCHARGE INSTRUCTIONS: Admit to hospitalist services. The chart was completed utilizing [employer] Speech voice recognition software.Grammatical errors, random word insertions, pronoun errors, and incomplete sentences are an occasional consequence of this system due to software limitations, ambient noise, and hardware issues.Any formal questions or concerns about the content, text, or information contained within the body of this dictation should be directly addressed to the physician for clarification. Past Med/Surg History Problem List High anion gap metabolic acidosis Asymptomatic bacteriuria Intractable cyclical vomiting syndrome (Acute) Anxiety with depression Chest pain Gastritis (Acute) Medical History Intractable cyclical vomiting with nausea Cyclic vomiting syndrome Surgical History History of esophagogastroduodenoscopy (EGD) Social History Smoking Status: Current every day smoker Second Hand Exposure: No; Do You Dip or Chew Tobacco: No; Hx Alcohol Use: No Hx Substance Use: No Preferred Language: Tajik Communication Ability: Effective Tip Finisher Required: No Beliefs That Will Affect Care: None Current Living Situation: Other Current Living Situation Comment: Apartment w/students Feels Safe at Home: Yes Assistive Devices: None Allergies Allergies Allergy/AdvReac Type Severity Reaction Status Date / Time No Known Allergies Allergy Verified 07/13/25 22:45 Home Meds Home Medications Medication Instructions Recorded Confirmed hydroxyzine HCl 25 mg tablet 25 mg PO UD PRN anxiety 07/13/24 07/14/25 escitalopram oxalate 20 mg tablet 20 mg PO DAILY 07/13/25 07/14/25 (Lexapro) Previous Rx's Medication Instructions Recorded famotidine 20 mg tablet 20 mg PO BID #60 tabs 08/28/24 ondansetron 4 mg disintegrating 4 mg PO Q4H PRN nausea and 07/14/25 tablet vomiting #30 tabs Results & Data (ED) Vital Signs Vital Signs - 24 hr 07/14/25 12:56 07/14/25 14:19 07/14/25 14:50 Temperature 36.4 C L Temperature Source Temporal Artery Scan Pulse Rate 102 H 72 Pulse Rate [Apical] 63 Respiratory Rate 17 18 Blood Pressure 130/63 Blood Pressure [Left Arm] 110/65 Blood Pressure Mean 85 Blood Pressure Mean [Left Arm] 80 Pulse Oximetry 99 100 Oxygen Delivery Method Room Air Room Air Sepsis Recent Fever Within 48 Hours No Sepsis New/Unexplained Change in Mental Status N/A Sepsis Action Taken by Nursing No Action Required 07/14/25 16:00 Temperature Temperature Source Pulse Rate Pulse Rate [Apical] 108 H Respiratory Rate 16 Blood Pressure Blood Pressure [Left Arm] 129/81 Blood Pressure Mean Blood Pressure Mean [Left Arm] 97 Pulse Oximetry 99 Oxygen Delivery Method Sepsis Recent Fever Within 48 Hours Sepsis New/Unexplained Change in Mental Status Sepsis Action Taken by Nursing Laboratory Data 07/14/25 13:28 07/14/25 14:23 Lab Results 07/14/25 07/14/25 07/14/25 Range/Units 13:28 14:23 16:11 WBC 15.46 H (4.8-10.8) K/ul RBC 4.51 (4.20-5.40) M/uL Hgb 13.4 (12.0-16.0) g/dl Hct 38.5 (37.0-47.0) % MCV 85.4 (80.0-100.0) fL MCH 29.7 (25.0-34.0) pg MCHC 34.8 (32.0-36.0) g/dL RDW Std Deviation 42.6 (36.4-46.3) fL RDW Coeff of Bienvenido 13.7 (11.5-14.5) % Plt Count 209 (130-400) K/uL MPV 12.5 H (9.4-12.4) fL Immature Gran % (Auto) 0.5 % Neut % (Auto) 82.7 % Lymph % (Auto) 10.6 % Lucas % (Auto) 6.0 % Eos % (Auto) 0.0 % Baso % (Auto) 0.2 % Neut # (Auto) 12.79 H (1.40-6.50) K/uL Lymph # (Auto) 1.64 (1.20-3.40) K/uL Lucas # (Auto) 0.93 H (0.11-0.59) K/uL Eos # (Auto) 0.00 (0.00-0.50) K/uL Baso # (Auto) 0.03 (0.00-0.20) K/uL Immature Gran # (Auto) 0.07 (0.01-0.20) K/uL VBG pH 7.41 (7.36-7.41) VBG pCO2 32 L (38-50) mmHg VBG pO2 34 mmHg VBG HCO3 20 mmol/L VBG O2 Saturation < 60.0 % VBG Base Excess -3.4 mEq/L Sodium 133 L (136-145) mmol/L Potassium TNP 3.3 L Chloride 98 (98-107) mmol/L Carbon Dioxide 15 L (21-32) mmol/L Anion Gap 20 H (3-11) BUN 13 (6-23) mg/dl Creatinine 1.04 (0.6-1.2) mg/dl Est Cr Clr Drug Dosing 64.6 ml/min eGFR 78.42 BUN/Creatinine Ratio 12.5 (10-20) Glucose 150 H (70-99(Fasting)) mg/dl Osmolality 284 (280-300) mOsm/kg Lactate 2.5 H* (0.4-2.0) mmol/L Calcium 10.0 (8.6-10.3) mg/dl Phosphorus 1.5 L* (2.5-4.9) mg/dl Magnesium 1.4 L (1.7-2.4) mg/dl Total Bilirubin 0.8 (0.2-1.0) mg/dl AST TNP 25 ALT 19 (7-52) U/L Alkaline Phosphatase 53 (34-104) U/L Total Protein 8.5 H (6.0-8.3) gm/dl Albumin 5.1 H (3.4-5.0) gm/dl Globulin 3.4 (2.5-4.0) gm/dl Albumin/Globulin Ratio 1.5 (0.9-2) HCG, Quant < 1 mIU/ml Administered Medications Potassium Chloride 40 meq/ (Dextrose/Sodium Chloride) 1,020 mls @ 125 mls/hr IV .Q8H10M STEVE Stop: 07/17/25 16:14 Last Admin: 07/14/25 16:37 Dose: 125 mls/hr Documented By: SLOAN Discontinued Medications Diphenhydramine HCl (Diphenhydramine 50 Mg/Ml Vial) 25 mg IV NOW STA Stop: 07/14/25 13:22 Last Admin: 07/14/25 13:30 Dose: 25 mg Documented By: BEE Prochlorperazine 5 mg/ Syringe 5 mls @ 5 mls/min IV ONE ONE Stop: 07/14/25 13:22 Last Admin: 07/14/25 13:33 Dose: 5 mls/min Documented By: BEE Sodium Chloride (Nss) 1,000 mls @ 999 mls/hr IV .Q1H1M ONE Stop: 07/14/25 14:21 Last Admin: 07/14/25 13:31 Dose: 999 mls/hr Documented By: BEE Pantoprazole Sodium (Protonix) 40 mg in 10 mls @ 5 mls/min IV NOW ONE Stop: 07/14/25 15:50 Last Admin: 07/14/25 16:43 Dose: 5 mls/min Documented By: SLOAN Metoclopramide HCl (Metoclopramide Hcl Inj 5 Mg/Ml 2 Ml Vial) 5 mg IV ONE ONE Stop: 07/14/25 15:38 Last Admin: 07/14/25 15:41 Dose: 5 mg Documented By: SLOAN Discharge Plan Visit Data Chief Complaint: Vomiting Stated Complaint: NAUSEA, VOMITING ED Provider: Leif Jaimes ED Midlevel Provider: Cherry Conde Discharge Problem: Intractable cyclical vomiting syndrome, Anxiety with depression Patient Disposition: Admitted As Inpatient Condition: Good Forms Stand Alone Forms: My [facility] Prescriptions Prescriptions: No Action famotidine 20 mg tablet 20 mg PO BID Qty: 60 0RF hydroxyzine HCl 25 mg Tablet 25 mg PO UD PRN (Reason: anxiety ) escitalopram oxalate [Lexapro] 20 mg Tablet 20 mg PO DAILY ondansetron 4 mg tablet,disintegrating 4 mg PO Q4H PRN (Reason: nausea and vomiting) Qty: 30 0RF Ambulatory Orders: GI Amb Referral (Routine) Timeframe: 1 Day Location: None Selected Ordered By: Cherry Conde Referrals [facility]errals[facility] [Primary Care Provider] -
[2025-07-14] MEDS: diphenhydrAMINE 50 MG/ML VIAL IV STA (13:30)
[2025-07-14] MEDS: SODIUM CHLORIDE 0.9% 1,000 ML IV ONE (13:31)
[2025-07-14] MEDS: PROCHLORPERAZINE 5 MG in SYRINGE 4 ML IV ONE (13:33)
[2025-07-14 13:53] LABS: Hematocrit (blood only) 38.5 % (37.0-47.0); Hemoglobin 13.4 g/dl (12.0-16.0); Immature Granulocytes # (auto) 0.07 K/uL (0.01-0.20); Immature Granulocytes % (auto) 0.5 %; Mean Corpuscular Hemoglobin 29.7 pg (25.0-34.0); Mean Corpuscular Volume 85.4 fL (80.0-100.0); Platelet Count 209 K/uL (130-400); RDW Standard Deviation 42.6 fL (36.4-46.3); Red Blood Count 4.51 M/uL (4.20-5.40); White Blood Count 15.46 K/ul (4.8-10.8)
[2025-07-14 14:20] LABS: Alanine Aminotransferase 19 U/L (7-52); Albumin Globulin Ratio 1.5 (0.9-2); Albumin Level 5.1 gm/dl (3.4-5.0); Alkaline Phosphatase 53 U/L (34-104); Anion Gap 20 (3-11); Bilirubin,Total 0.8 mg/dl (0.2-1.0); Blood Urea Nitrogen 13 mg/dl (6-23); Calcium 10.0 mg/dl (8.6-10.3); Carbon Dioxide 15 mmol/L (21-32); Chloride 98 mmol/L (98-107); Creatinine Clr Calc Pharmacy 64.6 ml/min; Globulin 3.4 gm/dl (2.5-4.0); Glucose 150 mg/dl (70-99(Fasting)); Sodium 133 mmol/L (136-145); Total Protein 8.5 gm/dl (6.0-8.3)
[2025-07-14 15:02] LABS: Potassium 3.3 mmol/L (3.5-5.1)
[2025-07-14] MEDS: METOCLOPRAMIDE HCL INJ 5 MG/ML 2 ML VIAL IV ONE (15:41)
--- NOTE | 2025-07-14 15:49 | History & Physical Report ---
Date of Service July 14, 2025 Assessment & Plan (1) Chest pain: (2) Anxiety with depression: (3) Intractable cyclical vomiting syndrome: (4) Cyclic vomiting syndrome: (5) High anion gap metabolic acidosis: (6) Hypophosphatasia: (7) Hypokalemia: Plan Cyclic vomiting syndrome Given that this started in 5th grade unlikely just cannabis hyperemesis although would be indistinguishable currently and highly recommend cannabis cessation as difficult to know how to tailor therapy Given family history of migraines, abdominal migraine also remains a possible diagnosis Highly recommend establishing with gastroenterology as she hasn't tried many recommended therapies including abortive therapies such as triptans, Emend or maintenance therapies such as TCAs Esophagitis/gastritis not ruled out although per patient not seen on prior EGD when she was 13 years old, will consult gastroenterology to consider inpatient EGD Currently my recommendations if ongoing symptoms (abdominal pain or nausea) to try sumatriptan one dose. If not effective for nausea use ondansetron 1st line, Emend 2nd line, metoclopramide 3rd line (pt reports metoclopramide previously effective therefore will use this instead of droperidol) With combination of ondansetron, sumatriptan and Lexapro will need to monitor for serotonin syndrome If above strategies not working overnight consider low dose benzodiazepine +/- capsaicin cream Moving forward consider TCA on discharge Switch to pantoprazole for possible gastritis High anion gap metabolic acidosis / hypophosphatemia / hypomagnesemia / hypokalemia Most likely starvation ketoacidosis but will get complete workup with VBG, serum osm, alcohol, lactate to assess for other causes Treatment for starvation ketoacidosis is D5W which has been ordered with replacement potassium Mg, PO ordered Would consider vitamin and mineral testing as outpatient given frequency of episodes Anxiety Continue lexapro VTE Prophylaxis - low risk Disposition - observation to med/surg History of Present Illness Chief Complaint: Intractable nausea and vomiting Primary Care Provider: [facility] Delisa Schultz is a 19 year old female who presents to the ER with intractable nausea vomiting after discharge earlier this morning. She reports never really improving during her hospitalization and went home and was unable to keep down any Gatorade therefore returned to the ER. Per last H&P possible exacerbating event was marijuana and alcohol on this occasion. She denies any marijuana or alcohol use since discharge. Appears to give a different story to different providers. To me she reports first being diagnosed with cyclic vomiting syndrome in 5th grade by peds gastroenterology at [facility]. Her last EGD was aged 13 years old and she does not think this showed any gastritis or esophagitis although she always notes previous significant pain with these episodes. She notes no exacerbation when she smokes marijuana although has told other providers differently. She has smoked marijuana for the last 2-3 years and reports it has not changed her symptoms. Her cyclic vomiting does appear somewhat worse with her periods and last menstrual period was in May. She has a family history of migraines with her mother having them monthly but no personal history. 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 She reports no prior use of TCAs, Emend or triptans . Allergies Allergy/AdvReac Type Severity Reaction Status Date / Time No Known Allergies Allergy Verified 07/13/25 22:45 Home Medications Medication Instructions Recorded Confirmed Type hydroxyzine HCl 25 mg tablet 25 mg PO UD PRN anxiety 07/13/24 07/14/25 History famotidine 20 mg tablet 20 mg PO BID #60 tabs 08/28/24 07/14/25 Rx escitalopram oxalate 20 mg tablet 20 mg PO DAILY 07/13/25 07/14/25 History (Lexapro) ondansetron 4 mg disintegrating 4 mg PO Q4H PRN nausea and 07/14/25 07/14/25 Rx tablet vomiting #30 tabs Past Med/Surg History Problem List (Updated 07/14/25 @ 17:48 by Cory Guy MD) Hypokalemia Hypophosphatasia High anion gap metabolic acidosis Asymptomatic bacteriuria Intractable cyclical vomiting syndrome (Acute) Anxiety with depression Chest pain Gastritis (Acute) Medical History Intractable cyclical vomiting with nausea Cyclic vomiting syndrome Surgical History History of esophagogastroduodenoscopy (EGD) Social History Smoking Status: Never smoker Second Hand Exposure: No; Do You Dip or Chew Tobacco: No; Tobacco Cessation Education Requested by Patient: No Hx Alcohol Use: No Hx Substance Use: Yes Last Used Substance: Days (ago) Preferred Language: Bulgarian Communication Ability: Effective Director Strategic Account Management Required: No Beliefs That Will Affect Care: None Current Living Situation: Parent and Family Current Living Situation Comment: Apartment w/students Other Information That Helps Us Care for You: No Feels Safe at Home: Yes Safety Concerns: Feels Safe At This Time Assistive Devices: None Review of Systems Review of Systems: All systems reviewed & are unremarkable except as noted in HPI & below Physical Exam Constitutional: WD/WN, vitals as above Respiratory: normal respiratory effort, lungs clear to auscultation Cardiovascular: RRR, no murmur, no edema Gastrointestinal (Abdomen): Inspection/Auscultation: abdomen normal to inspe ction; abdomen not distended Percussion/Palpation: + abdomen tender (generalized) and abdomen soft; no guarding and abdomen not rigid Results & Data Results & Data Vital Signs (Past 12 Hours) Vital Signs Temp Pulse Pulse Resp BP BP Pulse Ox 07/14/25 14:50 63 18 110/65 100 07/14/25 14:19 72 07/14/25 12:56 36.4 C L 102 H 17 130/63 99 O2 Del Method 07/14/25 14:50 Room Air 07/14/25 14:19 07/14/25 12:56 Room Air Laboratory Results Abnormal lab results 07/14/25 07/14/25 07/14/25 Range/Units 13:28 14:23 16:11 WBC 15.46 H (4.8-10.8) K/ul MPV 12.5 H (9.4-12.4) fL Neut # (Auto) 12.79 H (1.40-6.50) K/uL [place] # (Auto) 0.93 H (0.11-0.59) K/uL VBG pCO2 32 L (38-50) mmHg Sodium 133 L (136-145) mmol/L Potassium 3.3 L (3.5-5.1) mmol/L Carbon Dioxide 15 L (21-32) mmol/L Anion Gap 20 H (3-11) Glucose 150 H (70-99(Fasting)) mg/dl Lactate 2.5 H* (0.4-2.0) mmol/L Phosphorus 1.5 L* (2.5-4.9) mg/dl Magnesium 1.4 L (1.7-2.4) mg/dl Total Protein 8.5 H (6.0-8.3) gm/dl Albumin 5.1 H (3.4-5.0) gm/dl Diagnostic Findings None Medications Administered ER Medications Given: Diphenhydramine 25mg IV Prochlorperazine 5mg IV Normal saline 1000ml bolus Metoclopramide 5mg IV ECG Rate (beats per minute): 86 Rhythm: normal sinus Findings: no acute ischemic change Comparison ECG Date: from (July 13, 2025) Change: no significant change Code Status & VTE Plan Code Status Full VTE Prophylaxis Plan VTE Prophylaxis will be ordered: No PG Care Time/CCT Total # of Minutes Spent Total Time Spent with Patient: Total time spent is greater than 50% in coordination of care (as documented) at patient's floor/unit and/or counseling patient: Coding Level of Care Code 55417 INT INP/OBS CARE 3/75MIN Diagnoses Chest pain R07.9 Anxiety with depression F41.8 Intractable cyclical vomiting syndrome R11.15 Cyclic vomiting syndrome R11.15 High anion gap metabolic acidosis E87.29 Hypophosphatasia E83.39 Hypokalemia E87.6
[2025-07-14 16:28] LABS: Base Excess VBG -3.4 mEq/L; HCO3 VBG 20 mmol/L; Oxygen Saturation VBG < 60.0 %; PCO2 VBG 32 mmHg (38-50); PO2 VBG 34 mmHg; pH VBG 7.41 (7.36-7.41)
[2025-07-14 16:31] LABS: Magnesium 1.4 mg/dl (1.7-2.4)
[2025-07-14] MEDS ORDERED: POTASSIUM PHOS 3 MMOL/1 ML INFUSION IV STA (16:33)
[2025-07-14] MEDS: POTASSIUM CHLORIDE 40 MEQ in D5W AND 1/2NSS 1,000 ML IV SCH (16:37)
[2025-07-14] MEDS: PANTOprazole 40 MG/10 ML SYR IV ONE (16:43)
[2025-07-14] MEDS: LACTATED RINGER'S 1,000 ML IV ONE (17:39)
[2025-07-14] MEDS: MAGNESIUM SULFATE / D5W 1 GM/100 ML BAG IV SCH (17:39)
[2025-07-14] MEDS: POTASSIUM PHOSPHATE 15 MMOL in SODIUM CHLORIDE 0.9% 250 ML IV STA (18:28)
[2025-07-14] MEDS ORDERED: FOSAPREPITANT DIMEGLUMINE IV PRN (19:53)
[2025-07-14] MEDS ORDERED: SODIUM CHLORIDE 0.9% IV PRN (19:53)
[2025-07-14 20:16] LABS: Acetaminophen < 3 ug/ml (10-30); Salicylate < 3.0 mg/dl (3.0-30)
[2025-07-15] MEDS ORDERED: Nursing to Pharmacy Communication SCH (01:45)
[2025-07-15 08:22] LABS: Anion Gap 4.0 (3-11); Blood Urea Nitrogen 8.0 mg/dl (6-23); Calcium 8.2 mg/dl (8.6-10.3); Carbon Dioxide 21.0 mmol/L (21-32); Chloride 111.0 mmol/L (98-107); Creatinine Clr Calc Pharmacy 111.2 ml/min; Glucose 109.0 mg/dl (70-99(Fasting)); Magnesium 2.5 mg/dl (1.7-2.4); Potassium 4.3 mmol/L (3.5-5.1); Sodium 136.0 mmol/L (136-145)
[2025-07-15] MEDS: ESCITALOPRAM OXALATE 20 MG TAB PO SCH (08:42)
[2025-07-15] MEDS: ONDANSETRON INJ 2 MG/ML 2 ML VIAL IV PRN (10:13)
[2025-07-15] MEDS: LORazepam Inj 0.5 MG in SYRINGE 0.25 ML IV STA ×2 (10:45→13:05)
[2025-07-15] MEDS: METOCLOPRAMIDE HCL INJ 5 MG/ML 2 ML VIAL IV PRN (11:50)
--- NOTE | 2025-07-15 16:44 | Hospitalist Progress Note ---
Date of Service July 15, 2025 Assessment & Plan (1) Chest pain: (2) Anxiety with depression: (3) Intractable cyclical vomiting syndrome: (4) Cyclic vomiting syndrome: (5) High anion gap metabolic acidosis: (6) Hypophosphatasia: (7) Hypokalemia: Plan Cyclic vomiting syndrome Given that this started in 5th grade unlikely just cannabis hyperemesis although would be indistinguishable currently and highly recommend cannabis cessation as difficult to know how to tailor therapy Given family history of migraines, abdominal migraine also remains a possible diagnosis - although no improvement with sumatriptan here Highly recommend establishing with gastroenterology as she hasn't tried many recommended therapies including abortive therapies such as triptans, Emend or maintenance therapies such as TCAs Esophagitis/gastritis not ruled out although per patient not seen on prior EGD when she was 13 years old, although no significant improvement with Mylanta and pantoprazole Continue with nausea treatment - ondansetron 1st line, Emend 2nd line, metocl opramide 3rd line (pt reports metoclopramide previously effective therefore will use this instead of droperidol) With combination of ondansetron, sumatriptan and Lexapro will need to monitor for serotonin syndrome If above strategies not working overnight consider low dose benzodiazepine +/- anti-histamine Moving forward consider TCA on discharge Continue pantoprazole for possible gastritis High anion gap metabolic acidosis / hypophosphatemia / hypomagnesemia / hypokalemia Resolved overnight Anxiety Continue Lexapro VTE Prophylaxis - low risk Disposition - observation to med/surg Admission and Anticipated Discharge Date Admission Date: July 14, 2025 Subjective Doing very well this morning and ate breakfast fine. Shortly after I saw her though she started feeling her stomach bubbling and asked for a red popsicle but started having chest pain abdominal pain with nausea after red popsicle. Sumatriptan given without change. Lorazepam helped calm her slightly. Metoclopramide this time not successful. Usually improves with hot shower but reports the shower doesn't get hot enough here (she reports it has been this way even before marijuana use). Anxious and waking corridor for rest of the day with burning pain and nausea. No change with Mylanta. Physical Exam Constitutional: WD/WN, vitals as above Respiratory: normal respiratory effort, lungs clear to auscultation Cardiovascular: RRR, no murmur, no edema Gastrointestinal (Abdomen): Inspection/Auscultation: abdomen normal to inspection; abdomen not distended Percussion/Palpation: + abdomen tender (generalized) and abdomen soft; no guarding and abdomen not rigid Results & Data Results & Data Vital Signs (Past 12 Hours) Vital Signs Temp Pulse Resp BP Pulse Ox O2 Del Method 07/15/25 16:31 37.0 C 91 H 18 134/78 99 Room Air 07/15/25 07:22 36.7 C 57 L 16 92/60 L 99 Room Air PG Care Time/CCT Total # of Minutes Spent Total Time Spent with Patient: Total time spent is greater than 50% in coordination of care (as documented) at patient's floor/unit and/or counseling patient: Coding Level of Care Code 57232 SUB INP/OBS CARE 3/50MIN Diagnoses Chest pain R07.9 Anxiety with depression F41.8 Intractable cyclical vomiting syndrome R11.15 Cyclic vomiting syndrome R11.15 High anion gap metabolic acidosis E87.29 Hypophosphatasia E83.39 Hypokalemia E87.6
[2025-07-15] MEDS: ALUMINUM/MAGNESIUM/SIMETH (MAALOX MAX) 30 ML UDC PO PRN (16:54)
[2025-07-15] MEDS ORDERED: ACETAMINOPHEN 1,000 MG/100 ML VIAL IV PRN (18:16)
[2025-07-15] MEDS: POLYETHYLENE (MIRALAX) 17 GM PACK PO STA (18:32)
[2025-07-15] MEDS: ACETAMINOPHEN 1,000 MG/100 ML VIAL IV STA (18:32)
[2025-07-16 07:32] VITALS: BP 111/70; PULSE 89; RESP 16; TEMP 98.1; O2SAT 98
[2025-07-16 07:42] LABS: Anion Gap 9.0 (3-11); Blood Urea Nitrogen 11.0 mg/dl (6-23); Calcium 9.2 mg/dl (8.6-10.3); Carbon Dioxide 23.0 mmol/L (21-32); Chloride 103.0 mmol/L (98-107); Creatinine Clr Calc Pharmacy 87.4 ml/min; Glucose 83.0 mg/dl (70-99(Fasting)); Magnesium 2.4 mg/dl (1.7-2.4); Potassium 3.7 mmol/L (3.5-5.1); Sodium 135.0 mmol/L (136-145)
[2025-07-16] MEDS: INFLUENZA VACC TS2025-26(6m+)/PF (IIV3) 0.5mL Syr IM ONE (12:06)
--- NOTE | 2025-07-16 13:31 | Discharge Summary ---
Discharge Summary Date of Service July 16, 2025 Principal Dx & Hospital Course #1 = Principal Diagnosis (1) Chest pain: (2) Anxiety with depression: (3) Intractable cyclical vomiting syndrome: (4) Cyclic vomiting syndrome: (5) High anion gap metabolic acidosis: (6) Hypophosphatasia: (7) Hypokalemia: Plan Delisa Schultz is a 19 year old female observed at [facility] from July 14 - 2024 due to cyclic vomiting syndrome. This was treated with ondansetron, metoclopramide, sumatriptan and lorazepam. Sumatriptan did not appear to be effective. Metoclopramide was more successful and she will be discharged with a prescription of this. She reports hot showers help- raising the possibility of cannabis hyperemesis although her symptoms are longstanding and have been going on for much longer than her cannabis use and capsaicin cream does not help. Possibly symptoms worse because she ran out of her Lexapro for a few days - 1 month re-prescription sent to your pharmacy - and her anxiety is known to exacerbate her symptoms. Since panic attacks appear to start these episodes will also prescribe as needed lorazepam but advised not to take this regularly. For further nausea and vomiting recommend clear liquid diet only, ondansetron as needed and metoclopramide as needed. Gastritis not ruled out but no significant improvement with her chest/abdominal pains with Mylanta or pantoprazole, these pains just improved when her nausea improved. However she reports taking omeprazole regularly after the episodes does help therefore a 30 day prescription was given. We discussed starting a tricyclic antidepressant for reduce frequency of your cyclic vomiting events such as amitriptyline however she wished to discuss this more with her primary care provider before starting. Also discussed referral to gastroenterology which was placed. Recommend cessation of marijuana to rule this out as making her symptoms worse. Also recommend abstinence from alcohol. Notes For Next Care Provider Follow up with gastroenterology - consider EGD as not recently performed Consider tricyclic antidepressant with her primary care provider Medication Changes From Visit Lorazepam PRN for panic attacks Ondansetron +/- metoclopramide for nausea and vomiting Omeprazole for possible gastritis Admission HPI Per Admitting Provider Delisa Schultz is a 19 year old female who presents to the ER with intractable nausea vomiting after discharge earlier this morning. She reports never really improving during her hospitalization and went home and was unable to keep down any Gatorade therefore returned to the ER. Per last H&P possible exacerbating event was marijuana and alcohol on this occasion. She denies any marijuana or alcohol use since discharge. Appears to give a different story to different providers. To me she reports first being diagnosed with cyclic vomiting syndrome in 5th grade by peds gastroenterology at [facility]. Her last EGD was aged 13 years old and she does not think this showed any gastritis or esophagitis although she always notes previous significant pain with these episodes. She notes no exacerbation when she smokes marijuana although has told other providers differently. She has smoked marijuana for the last 2-3 years and reports it has not changed her symptoms. Her cyclic vomiting does appear somewhat worse with her periods and last menstrual period was in May. She has a family history of migraines with her mother having them monthly but no personal history. 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 She reports no prior use of TCAs, Emend or triptans . Discharge Exam Constitutional WD/WN, vitals as above Respiratory normal respiratory effort, lungs clear to auscultation Cardiovascular RRR, no murmur, no edema Gastrointestinal (Abdomen) Inspection/Auscultation: abdomen normal to inspection; abdomen not distended Percussion/Palpation: abdomen soft; abdomen nontender, no guarding and abdomen not rigid Discharge Plan Discharge Items Patient Disposition: Home - Self-Care Reason For Visit: CYCLIC VOMITING SYNDROME Discharge Diagnosis: Cyclic vomiting syndrome Condition on Discharge: Good Activity: Resume your previous activity Non-emergency contact: Primary Care Provider Call non-emergency contact if: you have any medication questions and your symptoms worsen Follow-up/Referrals: Case Fitzgerald DO [Physician] - (Establish for cyclic vomiting syndrome and gastritis) [facility] [Primary Care Provider] - Diet: Other - See Diet Comment Diet Comment: slowly advance diet from full liquids as above Addtl Attending Provider Instructions: You were observed at [facility] from July 14 - 2024 due to cyclic vomiting syndrome. This was treated with ondansetron, metoclopramide, sumatriptan and lorazepam. Sumatriptan did not appear to be effective. Metoclopramide was more successful. Possibly symptoms worse because you were off your Lexapro for a few days - 1 month re-prescription sent to your pharmacy. Since panic attacks appear to start these episodes will prescribe as needed lorazepam for this. For further nausea and vomiting recommend ondansetron as needed and metoclopramide as needed. We have also prescribed you omeprazole for possible gastritis - recommend follow up EGD with gastroenterology for this. Consider tricyclic antidepressant for reduce frequency of your cyclic vomiting events such as amitriptyline. Recommend discussing this with your primary care provider with referral to gastroenterology. Recommend cessation of marijuana to rule this out as making your symptoms worse. Also recommend abstinence from alcohol as this can make your symptoms worse. Pending Studies at Discharge: No Stand-Alone Forms: My [facility], Smoking Cessation Medications and DC Order Prescriptions: New omeprazole 20 mg capsule,delayed release(DR/EC) 20 mg PO DAILY Qty: 30 0RF escitalopram oxalate [Lexapro] 20 mg tablet 20 mg PO DAILY Qty: 30 0RF lorazepam 0.5 mg tablet 0.5 mg PO Q12H PRN (Reason: panic attack(s)) Qty: 7 0RF ondansetron 4 mg tablet,disintegrating 4 mg PO Q4H PRN (Reason: nausea and vomiting) Qty: 30 0RF metoclopramide HCl 5 mg tablet 5 mg PO ACHS PRN (Reason: nausea and vomiting) Qty: 30 0RF Continued famotidine 20 mg tablet 20 mg PO BID Qty: 60 0RF hydroxyzine HCl 25 mg Tablet 25 mg PO UD PRN (Reason: anxiety ) Discontinued escitalopram oxalate [Lexapro] 20 mg Tablet 20 mg PO DAILY ondansetron 4 mg tablet,disintegrating 4 mg PO Q4H PRN (Reason: nausea and vomiting) Qty: 30 0RF Discharge Orders: Discharge Order (Routine); Ordered 07/16/25 Ordered By: Cory Cox/Other Patient Handouts: Lorazepam Oral Tablet, Metoclopramide Oral Tablet, Ondansetron Oral Tablet, Omeprazole Delayed Release Oral Tablet, Cyclic Vomiting Admission Data Admit Date/Time: 07/14/25 16:15 Attending Provider: Cory Guy Admit Provider: Cory Guy Primary Care Provider: [facility] Other Providers: Cory Guy Other Interventions: Discharge Summary Assessment (RN) Last Done: 07/16/25 13:13 Hospital Stay Data Consultations 07/14/25 15:15 Consult Case Management Ambulatory ONCE 07/14/25 16:11 ED Decision to Admit Stat Pending Results Patient Have Any Pending Studies at Discharge: No Discharge Instructions Given to Patient (Per Discharging Provider) You were observed at [facility] from July 14 - 2024 due to cyclic vomiting syndrome. This was treated with ondansetron, metoclopramide, sumatriptan and lorazepam. Sumatriptan did not appear to be effective. Metoclopramide was more successful. Possibly symptoms worse because you were off your Lexapro for a few days - 1 month re-prescription sent to your pharmacy. Since panic attacks appear to start these episodes will prescribe as needed elo zepam for this. For further nausea and vomiting recommend ondansetron as needed and metoclopramide as needed. We have also prescribed you omeprazole for possible gastritis - recommend follow up EGD with gastroenterology for this. Consider tricyclic antidepressant for reduce frequency of your cyclic vomiting events such as amitriptyline. Recommend discussing this with your primary care provider with referral to gastroenterology. Recommend cessation of marijuana to rule this out as making your symptoms worse. Also recommend abstinence from alcohol as this can make your symptoms worse. Total Time Total Time Spent Total Time Spent (In Minutes): 50 Total Time Includes: Examination of the Patient, Discharge Planning and Medication Reconciliation Coding Level of Care Code 18242 INP/OBS DISCH >30 MIN Diagnoses Chest pain R07.9 Anxiety with depression F41.8 Intractable cyclical vomiting syndrome R11.15 Cyclic vomiting syndrome R11.15 High anion gap metabolic acidosis E87.29 Hypophosphatasia E83.39 Hypokalemia E87.6
== END 2025-07-16 13:55 | disposition home or self-care (01) ==
LOC: SUATTDRO → ED 12:45 → EDINP 12:45 → 3N 19:54